=== PATIENT | female | born 1950 | race Caucasian/White ===

== ENCOUNTER 2017-09-16 11:16 | Emergency (ER) | payer MEDICARE, MEDICAID ==
[~2017-09-16] VITALS: Ht 152.4 cm; Wt 56.7 kg
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
--- OUTSIDE RECORDS SUMMARY | 2017-09-16 11:22 | XMS REPORT ---
Author Author ISSAC CHEUNG Organization [facility] Address Unknown Phone Unavailable Care Team Providers Care Product Development Name Role Phone ISSAC CHEUNG Unavailable Unavailable PROBLEMS Type Condition ICD9-CM Code UWX00-GN Code Onset Dates Condition Status SNOMED Code Problem Encounter for immunization Z23 Active 402765777 Problem Chronic gastric ulcer, unspecified whether gastric ulcer hemorrhage or perforation present K25.7 Active 33769258 Problem 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 Active 719862864 Problem Other chronic pain G89.29 Active 87129458 Problem Tobacco abuse counseling Z71.6 Active 761243254 Problem Pain in left knee M25.562 Active 915852910301534 Problem Tobacco abuse Z72.0 Active 047911856 Problem High risk medication use Z79.899 Active 777769320450862 Problem Acute exacerbation of chronic obstructive pulmonary disease (COPD) J44.1 Active 961003396 Problem Hemiparesis affecting left side as late effect of cerebrovascular accident I69.354 Active 359511416 Problem Decreased GFR R94.4 Active 22929125 Problem Hyperlipidemia LDL goal <70 E78.5 Active 87375795 Problem Dermatitis L30.9 Active 75434243 Problem Knee pain, left anterior M25.562 Active 658465504 Problem Paranoid schizophrenia F20.0 Active 64231324 Problem Pain in right knee M25.561 Active 75400971 Problem 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 Active 268119220 Problem Major neurocognitive disorder F03.90 Active 828804217 Problem Hemiparesis affecting left side as late effect of stroke I69.354 Active 585577123 Problem Constipation, unspecified constipation type K59.00 Active 66462317 Problem Essential hypertension I10 Active 83008778 Problem Psychosis, unspecified psychosis type F29 Active 82472344 Problem Wheezing R06.2 Active 66484997 ALLERGIES No Information ENCOUNTERS Encounter Location Date Diagnosis [facility] [address] [id number] [place] [id number] Aug, Essential hypertension I[address] [id number][place] [id number] Aug, [facility] [address] [id number], [place] [id number] Aug, Pain in right knee M25.561 [facility] [address] [id number][place] [id number] Aug, [facility] [address] [id number][place] [id number] Jul, Essential hypertension I10 [facility] [address] [id number][place] [id number] Jul, High risk medication use Z79.899 ; Pain in right knee M25.561 ; Pain in left knee M25.562 and Other chronic pain G89.29 [facility] [address] [facility] [address] [id number][place] [id number] Jun, [place] [id number] [place] [address] Jun, Psychosis, unspecified psychosis type F29 and 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 [place] [address] [place] [address] Jun, [facility] [address] [facility] [address] [id number][place] [address] Jun, High risk medication use Z79.899 [facility] [address] [id number] [address] Jun, [facility] [address] [place] [address] AVE [id number][place] [id number] Jun, [place] [address] [place] [address] Jun, [facility] [address] [place] [address] 03 Feb, 2018 Tobacco abuse Z72.0 [place] [address] [facility] [id number] [place] [address] May, [facility] [address] [facility] [address] [id number][place] [id number] May, [facility] [address] [facility] [address] [id number], [place] [address] May, Essential hypertension I10 ; Tobacco abuse Z72.0 ; Tobacco abuse counseling Z71.6 and Decreased GFR R94.4 [place] [address]65[address] [address] May, [place] [address] [place] [address] May, Psychosis, unspecified psychosis type F29 and 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 [id number][place] [id number] May, Constipation, unspecified constipation type K59.[address] [id number], [place] [id number] May, High risk medication use Z79.[address] [id number] [place] [id number] May, Hyperlipidemia LDL goal <70 E78.5 and Decreased GFR R94.[address] [id number][place] [id number] May, Essential hypertension I10 and Acute exacerbation of chronic obstructive pulmonary disease (COPD) J44.1 [place] [address] [facility] [id number] [place] [address] Apr, Psychosis, unspecified psychosis type F29 [address] [id number], [place] [id number] Apr, Hemiparesis affecting left side as late effect of cerebrovascular accident I69.354 [place] [address] [place] [address] Apr, Psychosis, unspecified psychosis type F29 [facility] [address] [id number], [place] [id number] Apr, [facility] [address] [id number], [place] [address] Apr, High risk medication use Z79.899 [facility] [address] [id number], [place] [id number] Mar, [facility] [address] [id number], [place] [id number] Mar, 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 ; Essential hypertension I10 ; 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 and Hemiparesis affecting left side as late effect of cerebrovascular accident I69.354 [facility] [address]65100[place] [address] Mar, Psychosis, unspecified psychosis type F29 [facility] [address]65[address] [address] Mar, Psychosis, unspecified psychosis type F29 and 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 [facility] [address] [id number], [place] [address] Mar, Chronic gastric ulcer, unspecified whether gastric ulcer hemorrhage or perforation present K25.7 [facility] [address] [facility] [address] [id number], [place] [id number] Mar, High risk medication use Z79.899 [facility] [address] [id number][place] [id number] Feb, Encounter for immunization Z23 ; 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 ; Chronic gastric ulcer, unspecified whether gastric ulcer hemorrhage or perforation present K25.7 and Essential hypertension I10 [facility] [address] [id number], [place] [id number] Feb, Essential hypertension I10 [facility] [address] [address] Feb, 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 and Psychosis, unspecified psychosis type F29 [facility] [address] [id number] [address] Feb, [facility] [address] [id number], [place] [id number] Feb, [facility] [address] [id number][place] [id number] Feb, High risk medication use Z79.899 [place] [address] [id number] [address] Jan, 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 [facility] [address] [id number], [place] [id number] Jan, [facility] [address] [id number], [place] [id number] Jan, [facility] [address] [id number], [place] [address] Jan, High risk medication use Z79.899 ; Pain in right knee M25.561 ; Knee pain, left anterior M25.562 ; Wheezing R06.2 and Constipation, unspecified constipation type K59.00 [facility] [address] [id number] [address] Jan, 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 and Psychosis, unspecified psychosis type F29 [facility] [address] [id number] [address] Jan, [facility] [address]00565100[place] [address] Jan, Psychosis, unspecified psychosis type F29 [facility] [address] [id number], [place] [id number] Dec, High risk medication use Z79.899 [place] [address]65[address] [address] Dec, Psychosis, unspecified psychosis type F29 and 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 [facility] [address] [id number][place] [id number] Dec, Paranoid schizophrenia F20.0 and Major neurocognitive disorder F03.90 [facility] [address]00565100[place] [address] Dec, [facility] [address]00565100[place] [address] Dec, 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 [facility] [address]65100[place] [address] Dec, 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 [facility] [address]65[address] [address] Nov, [place] [address] [facility] [id number][place] [id number] Nov, High risk medication use Z79.899 [facility] [address]65[address] [address] Nov, [facility] [address] [address] Nov, 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 [facility] [address] [id number], [place] [id number] Nov, Paranoid schizophrenia F20.0 and Major neurocognitive disorder F03.90 [facility] [address] [id number], [place] [id number] Oct, [facility] [address] [id number], [place] [id number] Oct, 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 and Essential hypertension I10 [facility] [address] [id number][place] [address] Oct, High risk medication use Z79.899 ; Pain in right knee M25.561 ; Knee pain, left anterior M25.562 ; Hemiparesis affecting left side as late effect of stroke I69.354 and Dermatitis L30.[address] [id number], [place] [id number] Oct, [facility] [address] [id number] [address] Oct, 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 [facility] [address] [facility] [id number] [place] [address] Oct, 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 and Psychosis, unspecified psychosis type F29 [address] [id number][place] [id number] Oct, Major neurocognitive disorder F03.90 and Paranoid schizophrenia F20.[address] [id number][place] [id number] September, Paranoid schizophrenia F20.[address] [id number], [place] [address] September, High risk medication use Z79.899 ; Paranoid schizophrenia F20.0 ; Essential hypertension I10 ; Tobacco abuse Z72.0 and Tobacco abuse counseling Z71.[address] [id number], [place] [address] September, IMMUNIZATIONS No Known Immunizations SOCIAL HISTORY Never Assessed REASON FOR VISIT [facility] Contact PLAN OF CARE Activity Details Follow Up maintain current appts. Reason:sustain symptom relief. VITAL SIGNS MEDICATIONS Unknown Medications RESULTS No Results PROCEDURES No Known procedures [...] Carotid study showed 50% blockage bilat from 2015 Medical History CVD risk 27% Surgical History [...]
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
--- OUTSIDE RECORDS SUMMARY | 2017-09-16 11:23 | XMS REPORT ---
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 Active 201150293 Problem Other chronic pain G89.29 Active 62684088 Problem Tobacco abuse counseling Z71.6 Active 531606874 Problem Pain in left knee M25.562 Active 892198784506746 Problem Tobacco abuse Z72.0 Active 956541395 Problem High risk medication use Z79.899 Active 783212529563502 Problem Acute exacerbation of chronic obstructive pulmonary disease (COPD) J44.1 Active 568586317 Problem Hemiparesis affecting left side as late effect of cerebrovascular accident I69.354 Active 396125729 Problem Decreased GFR R94.4 Active 27898299 Problem Hyperlipidemia LDL goal <70 E78.5 Active 35461593 Problem Dermatitis L30.9 Active 04481604 Problem Knee pain, left anterior M25.562 Active 207557326 Problem Paranoid schizophrenia F20.0 Active 59528793 Problem Pain in right knee M25.561 Active 67167198 Problem 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 Active 711110878 Problem Major neurocognitive disorder F03.90 Active 194670249 Problem Hemiparesis affecting left side as late effect of stroke I69.354 Active 932806146 Problem Constipation, unspecified constipation type K59.00 Active 64289367 Problem Essential hypertension I10 Active 87070665 Problem Psychosis, unspecified psychosis type F29 Active 09335341 Problem Wheezing R06.2 Active 16102850 ALLERGIES Substance Reaction Event Type Date Status Codeine Phosphate Unknown Drug Allergy Jan, Active ENCOUNTERS Encounter Location Date Diagnosis [facility] [address] [facility] [id number] [place] [id number] Aug, Essential hypertension I10 [facility] [address] [id number] [id number] Aug, [facility] [address] [id number][place] [id number] Aug, Pain in right knee M25.561 [facility] [address] [id number][place] [id number] Aug, [facility] [address] [id number][place] [id number] Jul, Essential hypertension I10 [facility] [address] [facility] [address] [id number][place] [id number] Jul, High risk medication use Z79.899 ; Pain in right knee M25.561 ; Pain in left knee M25.562 and Other chronic pain G89.29 [facility] [address] [id number][place] [id number] Jun, [place] [address], [place] [address] Jun, Psychosis, unspecified psychosis type F29 and 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 [place] [address] [id number] [address] Jun, [facility] [address] [id number][place] [id number] Jun, High risk medication use Z79.899 [place] [address] [place] [id number] [address] Jun, [facility] [address] [id number][place] [id number] Jun, [place] [address] [place] [id number] [place] [address] Jun, [facility] [address] [place] [address] [id number], [place] [address] Jun, Tobacco abuse Z72.0 [facility] [address] [place] [id number], [place] [address] May, [facility] [address] [facility] [address] [id number][place] [id number] May, 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 [address] [id number][place] [id number] May, Constipation, unspecified constipation type K59.00 [facility] [address] [facility] [address] [id number][place] [id number] May, High risk medication use Z79.899 [facility] [address] [id number], [place] [address] May, Hyperlipidemia LDL goal <70 E78.5 [address] Decre[address] GFR R94.4 [facility] [address] [id number], [place] [id number] May, Essential hypertension I10 and Acute exacerbation of chronic obstructive pulmonary disease (COPD) J44.1 [facility] [address] [facility] [id number] [address] Apr, Psychosis, unspecified psychosis type F29 [facility] [address] [id number], [place] [id number] Apr, Hemiparesis affecting left side as late effect of cerebrovascular accident I69.354 [facility] [address] [facility] [id number][place] [address] Apr, Psychosis, unspecified psychosis type F29 [facility] [address] [id number] [place] [id number] Apr, [facility] [address] [id number] [place] [id number] Apr, High risk medication use Z79.[address] [facility] [address] [id number] [place] [id number] Mar, [facility] [address] [id number], [place] [id number] Mar, 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 ; Essential hypertension I10 ; 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 and Hemiparesis affecting left side as late effect of cerebrovascular accident I69.354 [place] [address] [place] [id number], [place] [address] Mar, Psychosis, unspecified psychosis type F29 [place] [address] [place] [id number], [place] [address] Mar, Psychosis, unspecified psychosis type F29 and 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 [facility] [address] [id number] [place] [id number] Mar, Chronic gastric ulcer, unspecified whether gastric ulcer hemorrhage or perforation present K25.[address] [facility] [address] [id number] [place] [address] Mar, High risk medication use Z79.[address] [facility] [address] [id number], [place] [address] Feb, Encounter for immunization Z23 ; 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 ; Chronic gastric ulcer, unspecified whether gastric ulcer hemorrhage or perforation present K25.7 and Essential hypertension I10 [facility] [address] [id number], [place] [id number] Feb, Essential hypertension I10 [facility] [address], [place] [address] Feb, 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 and Psychosis, unspecified psychosis type F29 [facility] [address] [place] [id number], [place] [address] Feb, [facility] [address] [id number], [place] [id number] Feb, [facility] [address] [id number], [place] [id number] Feb, High risk medication use Z79.899 [place] [address] [place] [id number], [place] [address] Jan, 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 [facility] [address] [id number], [place] [id number] Jan, [facility] [address] [id number], [place] [address] Jan, [facility] [address] [id number], [place] [id number] Jan, High risk medication use Z79.899 ; Pain in right knee M25.561 ; Knee pain, left anterior M25.562 ; Wheezing R06.2 and Constipation, unspecified constipation type K59.00 [facility] [address] [place] [id number], [place] [address] Jan, 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 and Psychosis, unspecified psychosis type F29 [facility] [address] [place] [id number] [address] Jan, [place] [address] [place] [id number], [place] [address] Jan, Psychosis, unspecified psychosis type F29 [facility] [address] [id number] [place] [id number] Dec, High risk medication use Z79.899 [facility] [address], [place] [address] Dec, Psychosis, unspecified psychosis type F29 and 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 [facility] [address] [id number] [place] [address] Dec, Paranoid schizophrenia F20.0 and Major neurocognitive disorder F03.90 [facility] [address] [place] [id number], [place] [address] Dec, [facility] [address]100[place], [place] [address] Dec, 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 [facility] [address] [id number], [place] [id number] Nov, Paranoid schizophrenia F20.0 and Major neurocognitive disorder F03.90 [facility] [address] [id number] [place] [id number] Oct, [facility] [address] [id number], [place] [id number] Oct, 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 and Essential hypertension I10 [address] [id number], [place] [address] Oct, High risk medication use Z79.899 ; Pain in right knee M25.561 ; Knee pain, left anterior M25.562 ; Hemiparesis affecting left side as late effect of stroke I69.354 and Dermatitis L30.[address] [id number], [place] [id number] Oct, [facility] [address], [place] [address] Oct, 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 [facility] [address]100[place], [place] [address] Oct, 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 and Psychosis, unspecified psychosis type F29 [address] [id number], [place] [id number] Oct, Major neurocognitive disorder F03.90 and Paranoid schizophrenia F20.[address] [id number][place] [address] September, Paranoid schizophrenia F20.[address] [id number], [place] [id number] September, High risk medication use Z79.899 ; Paranoid schizophrenia F20.0 ; Essential hypertension I10 ; Tobacco abuse Z72.0 and Tobacco abuse counseling Z71.[address] [id number], [place] [id number] September, IMMUNIZATIONS No Known Immunizations SOCIAL HISTORY Never Assessed REASON FOR VISIT f/u chronic pain jazmin medley PLAN OF CARE Activity Details Follow Up 4 Weeks Reason:breathing follow up VITAL SIGNS Height 60.1 in 2017-02-02 Weight 108.1 lbs 2017-02-02 Temperature 98.5 degrees Fahrenheit 2017-02-02 Heart Rate 97 bpm 2017-02-02 Respiratory Rate 20 2017-02-02 Oximetry 96 % 2017-02-02 BMI 21.04 kg/m2 2017-02-02 Blood pressure systolic 102 mmHg 2017-02-02 Blood pressure diastolic 60 mmHg 2017-02-02 MEDICATIONS Medication Instructions Dosage Frequency Start Date End Date Duration Status Clopidogrel Bisulfate 75 MG Orally Once a day 1 tablet 24h Active MiraLax 1 Orally Once a day 1 capful in 8 ounces of juice or water 24h Jan, Active Ventolin HFA 108 (90 Base) MCG/ACT Inhalation 4 times a day 2 puffs as needed 6h Jan, Active Knee Brace Adjustable Hinged - as directed Oct, Active Colace 100 mg Orally twice a day 1 capsule as needed 12h Dec, Active Seroquel 100 MG Orally twice a day 1 tablet 12h 30 days Active Seroquel 400 MG Orally every bedtime 1 tablet Oct, 30 days Active Lisinopril 40 MG TAKE 1 TABLET BY MOUTH ONCE A DAY 90 Active Fenofibrate Micronized 134 MG Orally Once a day 1 capsule with a meal 24h 90 days Active Hydrocodone-Acetaminophen 7.5-325 MG Orally 2 times a day 1 tablet as needed for severe pain 12h Active Naproxen 250 MG Orally Twice a day 1 tablet as needed for pain 12h Active Hydrochlorothiazide 12.5 MG Orally Once a day 1 capsule in the morning Once a day Orally 24h Active Trazodone HCl 100 mg Orally Once a day 1 tablet at night as needed for sleep 24h Active Valium 5 MG Orally Twice a day as needed 1 tablet Oct, 30 days Active RESULTS Name Result Date Reference Range AMERITOX 2017-02-02 Xray : Knee, Left 3 views (IN HOUSE) 2017-02-02 Xray : Knee, Right 3 views (IN HOUSE) 2017-02-02 Xray : Chest (IN HOUSE) 2017-02-02 PROCEDURES Procedure Date Ordered Result Body Site X-RAY EXAM OF KNEE, 3 Feb 02, 2017 No Charge Feb 02, 2017 NEBULIZER TREATMENT 2017-02-02 N/A ALBUTEROL UNIT DOSE FORM INHALED 2017-02-02 N/A [facility] VISIT ESTABLISHED PATIENT Feb 02, 2017 X-RAY EXAM OF KNEE, 1 OR 2 Feb 02, 2017 CHEST X-RAY Feb 02, 2017 MEASURE BLOOD OXYGEN LEVEL Feb 02, 2017 NEB/MDI RX INITIAL Feb 02, 2017 ALBUTEROL INHAL UNIT DOSE 1 MG Feb 02, 2017 INSTRUCTIONS MEDICATIONS ADMINISTERED No Known Medications MEDICAL [...] History CVD risk 27% Surgical History Hysterectomy 1981 Surgical History right [...]
--- OUTSIDE RECORDS SUMMARY | 2017-09-16 11:23 | XMS REPORT ---
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 Active 511746704 Problem Other chronic pain G89.29 Active 71645548 Problem Tobacco abuse counseling Z71.6 Active 895904631 Problem Pain in left knee M25.562 Active 973001903250940 Problem Tobacco abuse Z72.0 Active 020368142 Problem High risk medication use Z79.899 Active 255188666201312 Problem Acute exacerbation of chronic obstructive pulmonary disease (COPD) J44.1 Active 927721169 Problem Hemiparesis affecting left side as late effect of cerebrovascular accident I69.354 Active 254245188 Problem Decreased GFR R94.4 Active 72265410 Problem Hyperlipidemia LDL goal <70 E78.5 Active 71084953 Problem Dermatitis L30.9 Active 94569349 Problem Knee pain, left anterior M25.562 Active 469128390 Problem Paranoid schizophrenia F20.0 Active 95470718 Problem Pain in right knee M25.561 Active 10904098 Problem 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 Active 815399702 Problem Major neurocognitive disorder F03.90 Active 186755401 Problem Hemiparesis affecting left side as late effect of stroke I69.354 Active 672419836 Problem Constipation, unspecified constipation type K59.00 Active 11184802 Problem Essential hypertension I10 Active 18628180 Problem Psychosis, unspecified psychosis type F29 Active 17919488 Problem Wheezing R06.2 Active 43999707 ALLERGIES Substance Reaction Event Type Date Status Codeine Phosphate Unknown Drug Allergy Oct, Active ENCOUNTERS Encounter Location Date Diagnosis [facility] [address] [id number] Aug, [facility] [address] [id number] [id number] Jul, Essential hypertension I10 [facility] [place] [address] [id number][place] [id number] Jul, High risk medication use Z79.899 ; Pain in right knee M25.561 ; Pain in left knee M25.562 and Other chronic pain G89.29 [facility] [address] [id number][place] [id number] Jun, [facility] [address] [id number], [place] [address] Jun, Psychosis, unspecified psychosis type F29 and 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 [facility] [address], [place] [address] Jun, [facility] [place] [address] [id number][place] [id number] Jun, High risk medication use Z79.899 [facility] [address] [id number] [address] Jun, [facility] [place] [address] [id number][place] [id number] Jun, [facility] [address], [place] [address] Jun, [facility] [address], [place] [address] Jun, Tobacco abuse Z72.0 [facility] [id number] [address] May, [facility] [place] [address] [id number], [place] [id number] May, [facility] [id number] [id number] May, Essential hypertension I10 ; Tobacco abuse Z72.0 ; Tobacco abuse counseling Z71.6 and Decreased GFR R94.4 [place] [address], [place] [address] May, [place] [address] [place] [id number] [place] [address] May, Psychosis, unspecified psychosis type F29 and 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 [facility] [address] [id number][place] [id number] May, Constipation, unspecified constipation type K59.00 [place] [id number] [id number][place] [id number] May, High risk medication use Z79.[address] [id number][place] [id number] May, Hyperlipidemia LDL goal <70 E78.5 and Decreased GFR R94.[address] [id number], [place] [id number] May, Essential hypertension I10 and Acute exacerbation of chronic obstructive pulmonary disease (COPD) J44.1 [address], [place] [address] Apr, Psychosis, unspecified psychosis type F29 [facility] [address] [id number][place] [id number] Apr, Hemiparesis affecting left side as late effect of cerebrovascular accident I69.354 [address] [place] [address] Apr, Psychosis, unspecified psychosis type F29 [facility] [address] [id number][place] [id number] Apr, [facility] [address] [address] [id number] [id number] Apr, High risk medication use Z79.899 [facility] [address] [id number][place] [id number] Mar, [facility] [address] [id number][place] [id number] Mar, 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 ; Essential hypertension I10 ; 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 and Hemiparesis affecting left side as late effect of cerebrovascular accident I69.354 [facility] [address], [place] [address] Mar, Psychosis, unspecified psychosis type F29 [facility] [address] [id number] [place] [address] Mar, Psychosis, unspecified psychosis type F29 and 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 [facility] [place] [address] [id number], [place] [id number] Mar, Chronic gastric ulcer, unspecified whether gastric ulcer hemorrhage or perforation present K25.7 [facility] [address] [id number], [place] [id number] Mar, High risk medication use Z79.899 [facility] [address] [id number][place] [id number] Feb, Encounter for immunization Z23 ; 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 ; Chronic gastric ulcer, unspecified whether gastric ulcer hemorrhage or perforation present K25.7 and Essential hypertension I10 [facility] [address] [id number][place] [id number] Feb, Essential hypertension I10 [facility] [address], [place] [address] Feb, 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 and Psychosis, unspecified psychosis type F29 [facility] [address] [place] [address] Feb, [facility] [address] [id number], [place] [id number] Feb, [facility] [address] [id number], [place] [id number] Feb, High risk medication use Z79.899 [facility] [id number], [place] [address] Jan, 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 [facility] [address] [id number], [place] [id number] Jan, [facility] [address] [id number], [place] [id number] Jan, [facility] [address] [id number], [place] [id number] Jan, High risk medication use Z79.899 ; Pain in right knee M25.561 ; Knee pain, left anterior M25.562 ; Wheezing R06.2 and Constipation, unspecified constipation type K59.00 [facility] [address], [place] [address] Jan, 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 and Psychosis, unspecified psychosis type F29 [facility] [address], [place] [address] Jan, [facility] [address], [place] [address] Jan, Psychosis, unspecified psychosis type F29 [facility] [address] [id number], [place] [id number] Dec, High risk medication use Z79.899 [facility] [id number], [place] [address] Dec, Psychosis, unspecified psychosis type F29 and 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 [facility] [address] [id number][place] [id number] Dec, Paranoid schizophrenia F20.0 and Major neurocognitive disorder F03.90 [facility] [address] [facility] [id number], [place] [address] Dec, [facility] [address], [place] [address] Dec, 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 [facility] [id number], [place] [address] Dec, 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 [facility] [id number], [place] [address] Nov, [place] [address] [id number], [place] [id number] Nov, High risk medication use Z79.899 [place] [address], [place] [address] Nov, [place] [id number], [place] [address] Nov, 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 [facility] [address] [id number][place] [id number] Nov, Paranoid schizophrenia F20.0 and Major neurocognitive disorder F03.90 [facility] [address] [id number][place] [id number] Oct, [facility] [address] [id number] [id number] Oct, 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 and Essential hypertension I10 [facility] [address] [address] [id number], [place] [address] Oct, High risk medication use Z79.899 ; Pain in right knee M25.561 ; Knee pain, left anterior M25.562 ; Hemiparesis affecting left side as late effect of stroke I69.354 and Dermatitis L30.[address] [facility] [address] [id number], [place] [id number] Oct, [place] [id number] [facility] [id number] [id number] Oct, 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 [facility] [address] [facility] [id number] [address] Oct, 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 and Psychosis, unspecified psychosis type F29 [address] [id number][place] [id number] Oct, Major neurocognitive disorder F03.90 and Paranoid schizophrenia F20.[address] [id number], [place] [id number] September, Paranoid schizophrenia F20.[address] [id number][place] [id number] September, High risk medication use Z79.899 ; Paranoid schizophrenia F20.0 ; Essential hypertension I10 ; Tobacco abuse Z72.0 and Tobacco abuse counseling Z71.[address] [id number], [place] [id number] September, IMMUNIZATIONS No Known Immunizations SOCIAL HISTORY Never Assessed REASON FOR VISIT pain in both knees and shoulders and left hip jazmin medley PLAN OF CARE Activity Details Follow Up 4 Weeks Reason:pain follow up VITAL SIGNS Height 60.1 in 2016-11-10 Weight 109.8 lbs 2016-11-10 Temperature 97.2 degrees Fahrenheit 2016-11-10 Heart Rate 87 bpm 2016-11-10 Respiratory Rate 18 2016-11-10 BMI 21.37 kg/m2 2016-11-10 Blood pressure systolic 102 mmHg 2016-11-10 Blood pressure diastolic 60 mmHg 2016-11-10 MEDICATIONS Medication Instructions Dosage Frequency Start Date End Date Duration Status Hydrocodone-Acetaminophen 7.5-325 MG Orally 2 times a day 1 tablet as needed for severe pain 12h Active Fenofibrate Micronized 67 MG Orally Once a day 1 capsule with a meal 24h Active Hydrocortisone 2.5 % Externally Twice a day 1 application to affected area 12h Oct, Nov, 14 days Active Seroquel 25 MG Orally dialy as needed for psychosis, anxiety 1 tablet 30 days Active Knee Brace Adjustable Hinged - as directed Oct, Active Lisinopril 40 mg Orally Once a day 1 tablet 24h Active Clopidogrel Bisulfate 75 MG Orally Once a day 1 tablet 24h Active Seroquel 100 MG Orally every bedtime 1 tablet Oct, 30 day(s) Active Hydrochlorothiazide 12.5 MG Orally Once a day 1 capsule in the morning 24h Active Valium 5 mg Orally Once a day 1 tablet as needed 24h Oct, 30 days Active Trazodone HCl 100 mg Orally twice a day 1 tablet 12h 30 days Active RESULTS Name Result Date Reference Range URINE DRUG SCREEN (IN HOUSE) 2016-11-10 Lot # [id number] Exp date 11/2017 Control pos COCAINE neg AMPH neg MTD neg THC neg OPIATE neg BENZO pos PCP neg BAR neg OXY neg MAMP neg TCA pos BUP neg MDMA neg TSH W/ FREE T4 2016-11-10 TSH 1.060 0.450-4.500 T4,Free(Direct) 1.12 0.82-1.77 CBC 2016-11-10 WBC 8.8 3.4-10.8 RBC 4.52 3.77-5.28 Hemoglobin 13.7 11.1-15.9 Hematocrit 40.5 34.0-46.6 MCV 90 79-97 MCH 30.3 26.6-33.0 MCHC 33.8 31.5-35.7 RDW 13.9 12.3-15.4 Platelets 383 150-379 Neutrophils 49 Lymphs 44 Monocytes 3 Eos 2 Basos 1 Immature Cells Neutrophils (Absolute) 4.4 1.4-7.0 Lymphs (Absolute) 3.9 0.7-3.1 Monocytes(Absolute) 0.3 0.1-0.9 Eos (Absolute) 0.2 0.0-0.4 Baso (Absolute) 0.0 0.0-0.2 Immature Granulocytes 1 Immature Grans (Abs) 0.1 0.0-0.1 NRBC Hematology Comments: LIPID PANEL 2016-11-10 Cholesterol, Total 179 100-199 Triglycerides 242 0-149 HDL Cholesterol 36 >39 VLDL Cholesterol Lind[place] 48 5-40 LDL Cholesterol Calc 95 0-99 Comment: CMP 2016-11-10 Glucose, Serum 89 65-99 BUN 25 8-27 Creatinine, Serum 1.02 0.57-1.00 eGFR If NonAfricn Am 58 >59 eGFR If Africn Am 67 >59 BUN/Creatinine Ratio 25 12-28 Sodium, Serum 137 134-144 Potassium, Serum 4.4 3.5-5.2 Chloride, Serum 99 96-106 Carbon Dioxide, Total 19 18-29 Calcium, Serum 10.3 8.7-10.3 Protein, Total, Serum 7.7 6.0-8.5 Albumin, Serum 4.9 3.6-4.8 Globulin, Total 2.8 1.5-4.5 A/G Ratio 1.8 1.2-2.2 Bilirubin, Total <0.2 0.0-1.2 Alkaline Phosphatase, S 58 39-117 AST (SGOT) 14 0-40 ALT (SGPT) 12 0-32 PROCEDURES Procedure Date Ordered Result Body Site ROUTINE VENIPUNCTURE 2016-11-10 N/A [facility], 2016 [facility] VISIT ESTABLISHED PATIENT November 10, 2016 INSTRUCTIONS MEDICATIONS ADMINISTERED No Known Medications MEDICAL [...]
--- OUTSIDE RECORDS SUMMARY | 2017-09-16 11:23 | XMS REPORT ---
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 Name Role Phone IVA GARETH Unavailable PROBLEMS Type Condition ICD9-CM Code ONP06-CO Code Onset Dates Condition Status SNOMED Code Problem Encounter for immunization Z23 Active 812046885 Problem Chronic gastric ulcer, unspecified whether gastric ulcer hemorrhage or perforation present K25.7 Active 46817842 Problem 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 Active 709027427 Problem Other chronic pain G89.29 Active 59082453 Problem Tobacco abuse counseling Z71.6 Active 043036688 Problem Pain in left knee M25.562 Active 744283123917357 Problem Tobacco abuse Z72.0 Active 857783665 Problem High risk medication use Z79.899 Active 712647715248174 Problem Acute exacerbation of chronic obstructive pulmonary disease (COPD) J44.1 Active 225266581 Problem Hemiparesis affecting left side as late effect of cerebrovascular accident I69.354 Active 352207761 Problem Decreased GFR R94.4 Active 32672302 Problem Hyperlipidemia LDL goal <70 E78.5 Active 80269954 Problem Dermatitis L30.9 Active 12476341 Problem Knee pain, left anterior M25.562 Active 508412095 Problem Paranoid schizophrenia F20.0 Active 54111758 Problem Pain in right knee M25.561 Active 99528086 Problem 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 Active 932671156 Problem Major neurocognitive disorder F03.90 Active 767783776 Problem Hemiparesis affecting left side as late effect of stroke I69.354 Active 905543415 Problem Constipation, unspecified constipation type K59.00 Active 74738750 Problem Essential hypertension I10 Active 95148955 Problem Psychosis, unspecified psychosis type F29 Active 94770114 Problem Wheezing R06.2 Active 33604899 ALLERGIES Substance Reaction Event Type Date Status Codeine Phosphate Unknown Drug Allergy Dec, Active ENCOUNTERS Encounter Location Date [facility] [address] [id number][place] [id number] Aug, [facility] [address] [id number] [id number] Aug, [facility] [address] [id number][place] [id number] Aug, [facility] [address] [id number][place] [id number] Aug, Pain in right knee M25.561 [facility] [address] [id number], [place] [id number] Aug, [facility] [address] [id number][place] [id number] Jul, Essential hypertension I10 [facility] [address] [id number][place] [id number] Jul, High risk medication use Z79.899 ; Pain in right knee M25.561 ; Pain in left knee M25.562 and Other chronic pain G89.29 [facility] [address] [id number][place] [id number] Jun, [place] [id number] [address] Jun, Psychosis, unspecified psychosis type F29 and 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 [facility] [address] [id number] [address] Jun, [facility] [address] [id number], [place] [id number] Jun, High risk medication use Z79.899 [place] [address] [id number] [address] Jun, [facility] [address] [id number], [place] [id number] Jun, [place] [address] [address] Jun, [facility] [id number] [place] [address] Jun, Tobacco abuse Z72.0 [address] [address] May, [facility] [id number] [facility] [address] [id number][place] [id number] May, [address] [id number], [place] [id number] May, Essential hypertension I10 ; Tobacco abuse Z72.0 ; Tobacco abuse counseling Z71.6 and Decreased GFR R94.4 [address] [address] May, [place] [id number] [place] [address] May, Psychosis, unspecified psychosis type F29 and 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 [facility] [address] [facility] [address] [id number][place] [id number] May, Constipation, unspecified constipation type K59.[address] [id number][place] [id number] May, High risk medication use Z79.[address] [id number][place] [id number] May, Hyperlipidemia LDL goal <70 E78.5 and Decreased GFR R94.4 [facility] [address] [facility] [id number] [place] [id number] May, Essential hypertension I10 and Acute exacerbation of chronic obstructive pulmonary disease (COPD) J44.1 [address] [address] Apr, Psychosis, unspecified psychosis type F29 [facility] [address] [id number], [place] [id number] Apr, Hemiparesis affecting left side as late effect of cerebrovascular accident I69.354 [facility] [id number] [address] 07 Apr, 2017 Psychosis, unspecified psychosis type F29 [facility] [address] [id number], [place] [id number] Apr, [facility] [address] [id number], [place] [id number] Apr, High risk medication use Z79.[address] [facility] [address] [id number], [place] [id number] Mar, [facility] [address] [id number], [place] [id number] Mar, 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 ; Essential hypertension I10 ; 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 and Hemiparesis affecting left side as late effect of cerebrovascular accident I69.354 [facility] [address] [address] 24 Mar, 2017 Psychosis, unspecified psychosis type F29 [facility] [id number] [address] Mar, Psychosis, unspecified psychosis type F29 and 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 [facility] [address] [id number], [place] [id number] Mar, Chronic gastric ulcer, unspecified whether gastric ulcer hemorrhage or perforation present K25.[address] [facility] [address] [id number], [place] [id number] Mar, High risk medication use Z79.899 [facility] [address] [id number], [place] [id number] Feb, Encounter for immunization Z23 ; 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 ; Chronic gastric ulcer, unspecified whether gastric ulcer hemorrhage or perforation present K25.7 and Essential hypertension I10 [facility] [address] [id number], [place] [id number] Feb, Essential hypertension I10 [facility] [address] [address] Feb, 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 and Psychosis, unspecified psychosis type F29 [facility] [address] [place] [address] Feb, [facility] [address] [id number], [place] [id number] Feb, [facility] [address] [facility] [address] [id number], [place] [id number] Feb, High risk medication use Z79.899 [place] [address] [place] [address] Jan, 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 [facility] [address] [id number], [place] [id number] Jan, [facility] [address] [id number], [place] [id number] Jan, [facility] [address] [facility] [address] [id number], [place] [id number] Jan, High risk medication use Z79.899 ; Pain in right knee M25.561 ; Knee pain, left anterior M25.562 ; Wheezing R06.2 and Constipation, unspecified constipation type K59.00 [place] [address] [address] Jan, 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 and Psychosis, unspecified psychosis type F29 [facility] [address] [address] Jan, [facility] [address] [place] [address] Jan, Psychosis, unspecified psychosis type F29 [facility] [address] [id number], [place] [id number] Dec, High risk medication use Z79.899 [facility] [address] [facility] [id number] [address] Dec, Psychosis, unspecified psychosis type F29 and 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 [facility] [address] [id number], [place] [id number] Dec, Paranoid schizophrenia F20.0 and Major neurocognitive disorder F03.90 [facility] [id number] [address] Dec, [facility] [address] [address] Dec, 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 [facility] [id number] [address] Dec, 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 [facility] [address] [id number] [address] Nov, [facility] [address] [facility] [address] [id number], [place] [id number] Nov, High risk medication use Z79.899 [facility] [address] [id number] [address] Nov, [facility] [address] [facility] [id number] [address] Nov, 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 [facility] [address] [id number], [place] [id number] Nov, Paranoid schizophrenia F20.0 and Major neurocognitive disorder F03.90 [facility] [address] [id number], [place] [id number] Oct, [address] [id number], [place] [id number] Oct, 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 and Essential hypertension I10 [address] [id number], [place] [id number] Oct, High risk medication use Z79.899 ; Pain in right knee M25.561 ; Knee pain, left anterior M25.562 ; Hemiparesis affecting left side as late effect of stroke I69.354 and Dermatitis L30.[address] [id number], [place] [id number] Oct, [place] [address] [address] Oct, 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 [place] [address] [id number] Oct, 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 and Psychosis, unspecified psychosis type F29 [address] [id number], [place] [address] Oct, Major neurocognitive disorder F03.90 and Paranoid schizophrenia F20.[address] [id number], [place] [id number] September, Paranoid schizophrenia F20.[address] [id number], [place] [id number] September, High risk medication use Z79.899 ; Paranoid schizophrenia F20.0 ; Essential hypertension I10 ; Tobacco abuse Z72.0 and Tobacco abuse counseling Z71.[address] [id number], [place] [id number] September, IMMUNIZATIONS No Known Immunizations SOCIAL HISTORY Never Assessed REASON FOR VISIT f/u Michell PLAN OF CARE Activity Details Follow Up 4 Weeks Reason: VITAL SIGNS Height 60.1 in 2017-01-05 Weight 109.8 lbs 2017-01-05 Heart Rate 88 bpm 2017-01-05 Respiratory Rate 20 2017-01-05 BMI 21.37 kg/m2 2017-01-05 Blood pressure systolic 124 mmHg 2017-01-05 Blood pressure diastolic 68 mmHg 2017-01-05 MEDICATIONS Medication Instructions Dosage Frequency Start Date End Date Duration Status Fenofibrate Micronized 134 MG Orally Once a day 1 capsule with a meal 24h 90 days Active Naproxen 250 MG Orally Twice a day 1 tablet 12h Oct, Dec, 30 day(s) Active Lisinopril 40 mg 1 tablet Once a day Orally Active Clopidogrel Bisulfate 75 MG Orally Once a day 1 tablet 24h Active Trazodone HCl 100 mg Orally Once a day 1 tablet at night as needed for sleep 24h 30 days Active Lisinopril 40 mg Orally Once a day 1 tablet 24h Active Seroquel 50 MG Orally three times a day as needed for mood, psychosis 1 tablet 30 days Active Knee Brace Adjustable Hinged - as directed Oct, Active Hydrocodone-Acetaminophen 7.5-325 MG Orally 2 times a day 1 tablet as needed for severe pain 12h Active Hydrochlorothiazide 12.5 MG Orally Once a day 1 capsule in the morning 24h Active Seroquel 300 MG Orally every bedtime 0.5 tablet for three nights then take one tablet every night Oct, 30 days Active Valium 5 MG Orally Once a day 1 tablet as needed 24h Oct, 30 days Active RESULTS No Results PROCEDURES Procedure Date Ordered Result Body Site [facility] VISIT ESTABLISHED PATIENT Jan 05, 2017 PSYTX COMPLEX INTERACTIVE Jan 05, 2017 INSTRUCTIONS MEDICATIONS ADMINISTERED No Known Medications [...]
--- OUTSIDE RECORDS SUMMARY | 2017-09-16 11:24 | XMS REPORT ---
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 Name Role Phone IVANIA SANTIAGO Unavailable PROBLEMS Type Condition ICD9-CM Code XTI66-MY Code Onset Dates Condition Status SNOMED Code Problem Encounter for immunization Z23 Active 999515572 Problem Chronic gastric ulcer, unspecified whether gastric ulcer hemorrhage or perforation present K25.7 Active 12289150 Problem 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 Active 863693388 Problem Other chronic pain G89.29 Active 54106394 Problem Tobacco abuse counseling Z71.6 Active 198535204 Problem Pain in left knee M25.562 Active 099582394243498 Problem Tobacco abuse Z72.0 Active 229292063 Problem High risk medication use Z79.899 Active 015153152312846 Problem Acute exacerbation of chronic obstructive pulmonary disease (COPD) J44.1 Active 542094613 Problem Hemiparesis affecting left side as late effect of cerebrovascular accident I69.354 Active 029974150 Problem Decreased GFR R94.4 Active 48603072 Problem Hyperlipidemia LDL goal <70 E78.5 Active 33143952 Problem Dermatitis L30.9 Active 72639846 Problem Knee pain, left anterior M25.562 Active 578913909 Problem Paranoid schizophrenia F20.0 Active 02920067 Problem Pain in right knee M25.561 Active 84009635 Problem 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 Active 490968805 Problem Major neurocognitive disorder F03.90 Active 940640209 Problem Hemiparesis affecting left side as late effect of stroke I69.354 Active 776137103 Problem Constipation, unspecified constipation type K59.00 Active 83045438 Problem Essential hypertension I10 Active 45942198 Problem Psychosis, unspecified psychosis type F29 Active 09979578 Problem Wheezing R06.2 Active 32153463 ALLERGIES No Information ENCOUNTERS Encounter Location Date Diagnosis [address] [id number] [id number] Aug, [facility] [address] [facility] [id number], [place] [address] Aug, [facility] [address] [id number][place] [id number] Aug, [facility] [address] [id number][place] [id number] Aug, Pain in right knee M25.561 [facility] [address] [id number], [place] [id number] Aug, [facility] [address] [id number][place] 193846480 Jul, Essential hypertension I10 [facility] [address] [id number][place] 46[address]337[address] Jul, High risk medication use Z79.899 ; Pain in right knee M25.561 ; Pain in left knee M25.562 and Other chronic pain G89.29 [facility] [address] [id number][place] [id number] Jun, [facility] [address] [id number] [address] Jun, Psychosis, unspecified psychosis type F29 and 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 [facility] [address] [facility] [id number][place] Jun, [facility] [address] [address] [id number][place] 768668945 Jun, High risk medication use Z79.899 [facility] [address] [facility] [id number][place] [address] Jun, [facility] [address] [address] [id number], [place] [id number] Jun, [facility] [address]00565100[place], [place] [address] Jun, [place] [address] [place] [address] Jun, Tobacco abuse Z72.0 [place] [address]005[address], [place] [address] May, [facility] [address] [id number][place] [id number] May, [facility] [address] [id number][place] [address] May, Essential hypertension I10 ; Tobacco abuse Z72.0 ; Tobacco abuse counseling Z71.6 and Decreased GFR R94.4 [place] [address]00565100[place], [place] [address] May, [place] [address] [id number] [place] [address] May, Psychosis, unspecified psychosis type F29 and 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 [facility] [address] [id number], [place] 193025098 May, Constipation, unspecified constipation type K59.00 [facility] [address] [id number], [place] [id number] May, High risk medication use Z79.899 [facility] [address] [id number], [place] [id number] May, Hyperlipidemia LDL goal <70 E78.5 and Decreased GFR R94.4 [facility] [address] [id number], [place] 944198560 May, Essential hypertension I10 and Acute exacerbation of chronic obstructive pulmonary disease (COPD) J44.1 [place] [address] [id number], [place] [address] Apr, Psychosis, unspecified psychosis type F29 [facility] [address] [address] [id number], [place] [address]32409014 Apr, Hemiparesis affecting left side as late effect of cerebrovascular accident I69.354 [place] [address] [id number], [place] [address] Apr, Psychosis, unspecified psychosis type F29 [facility] [address] [id number], [place] [id number] Apr, [facility] [address] [id number], [place] 688959188 Apr, High risk medication use Z79.899 [facility] [address] [id number], [place] 177435843 Mar, [facility] [address] [id number], [place] 444282783 Mar, 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 ; Essential hypertension I10 ; 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 and Hemiparesis affecting left side as late effect of cerebrovascular accident I69.354 [place] [address] [id number], [place] [address] 24 Mar, 2017 Psychosis, unspecified psychosis type F29 [place] [address] [id number], [place] [address] Mar, Psychosis, unspecified psychosis type F29 and 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 [facility] [address] [id number], [place] 632947451 Mar, Chronic gastric ulcer, unspecified whether gastric ulcer hemorrhage or perforation present K25.7 [facility] [address] [address] [id number], [place] 780874911 Mar, High risk medication use Z79.899 [facility] [address] [address] [id number], [place] 570267237 Feb, Encounter for immunization Z23 ; 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 ; Chronic gastric ulcer, unspecified whether gastric ulcer hemorrhage or perforation present K25.7 and Essential hypertension I10 [facility] [address] [id number], [place] 548957263 Feb, Essential hypertension I10 [facility] [address]00565100[place], [place] [address] Feb, 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 and Psychosis, unspecified psychosis type F29 [facility] [address]00565100[place], [place] [address] Feb, [facility] [address] [address] [id number], [place] 00590[address] Feb, [facility] [address] [id number], [place] 274923063 Feb, High risk medication use Z79.899 [place] [address]00565100[place], [place] [address] Jan, 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 [facility] [address] [address] [id number], [place] 017772947 Jan, [facility] [address] [address] [id number], [place] [id number] Jan, [facility] [address] [id number], [place] 165804584 Jan, High risk medication use Z79.899 ; Pain in right knee M25.561 ; Knee pain, left anterior M25.562 ; Wheezing R06.2 and Constipation, unspecified constipation type K59.00 [facility] [address] [id number], [place] [address] Jan, 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 and Psychosis, unspecified psychosis type F29 [facility] [address] [id number], [place] [address] Jan, [facility] [address] [id number], [place] [address] Jan, Psychosis, unspecified psychosis type F29 [facility] [address] [id number], [place] 631191607 Dec, High risk medication use Z79.899 [facility] [address] [id number], [place] [address] Dec, Psychosis, unspecified psychosis type F29 and 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 [facility] [address] [id number], [place] 872663872 Dec, Paranoid schizophrenia F20.0 and Major neurocognitive disorder F03.90 [facility] [address]100[place], [place] [address] Dec, [facility] [address]100[place], [place] [address] Dec, 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 [facility] [address], [place] [address] Dec, 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 [facility] [address], [place] [address] Nov, [facility] [address] [facility] [address] [id number], [place] 486211128 Nov, High risk medication use Z79.899 [facility] [address] [id number], [place] [address] Nov, [facility] [address] [facility] [id number], [place] [address]- [address] Nov, 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 [facility] [address] [id number], [place] 199989852 Nov, Paranoid schizophrenia F20.0 and Major neurocognitive disorder F03.90 [facility] [address] [address] [id number], [place] [address]6499716 Oct, [facility] [address] [id number], [place] 802944542 Oct, 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 and Essential hypertension I10 [address] [id number], [place] 304237943 Oct, High risk medication use Z79.899 ; Pain in right knee M25.561 ; Knee pain, left anterior M25.562 ; Hemiparesis affecting left side as late effect of stroke I69.354 and Dermatitis L30.[address] [id number], [place] 448631954 Oct, [place] [address], [place] [address] Oct, 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 [facility] [address] [id number], [place] [address] Oct, 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 and Psychosis, unspecified psychosis type F29 [address] [id number], [place] 309863316 Oct, Major neurocognitive disorder F03.90 and Paranoid schizophrenia F20.[address] [id number], [place] 456737578 September, Paranoid schizophrenia F20.[address] [id number], [place] 643714068 September, High risk medication use Z79.899 ; Paranoid schizophrenia F20.0 ; Essential hypertension I10 ; Tobacco abuse Z72.0 and Tobacco abuse counseling Z71.[address] [id number], [place] [id number] September, IMMUNIZATIONS No Known Immunizations SOCIAL HISTORY Never Assessed REASON FOR VISIT Medication refill request PLAN OF CARE VITAL SIGNS MEDICATIONS Medication Instructions Dosage Frequency Start Date End Date Duration Status Hydrocodone-Acetaminophen 7.5-325 MG Orally 2 times a day 1 tablet as needed for severe pain 12h Active Colace 100 mg Orally twice a day 1 capsule as needed 12h 29 Dec, 2016 Mar, 30 days Active RESULTS No Results PROCEDURES [...]
--- OUTSIDE RECORDS SUMMARY | 2017-09-16 11:24 | XMS REPORT ---
Author Author VERONIKA Carlso Organization [facility] Address [address] [place] [address] Care Team Providers Care Lumber Bearer Name Role Phone VERONIKA Carlos Unavailable PROBLEMS Type Condition ICD9-CM Code TDT24-DI Code Onset Dates Condition Status SNOMED Code Problem Encounter for immunization Z23 Active 294852163 Problem Chronic gastric ulcer, unspecified whether gastric ulcer hemorrhage or perforation present K25.7 Active 62090522 Problem 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 Active 853671934 Problem Other chronic pain G89.29 Active 31886368 Problem Tobacco abuse counseling Z71.6 Active 324064413 Problem Pain in left knee M25.562 Active 489446354363599 Problem Tobacco abuse Z72.0 Active 414622981 Problem High risk medication use Z79.899 Active 339988904778967 Problem Acute exacerbation of chronic obstructive pulmonary disease (COPD) J44.1 Active 017383357 Problem Hemiparesis affecting left side as late effect of cerebrovascular accident I69.354 Active 302474903 Problem Decreased GFR R94.4 Active 71860510 Problem Hyperlipidemia LDL goal <70 E78.5 Active 47148039 Problem Dermatitis L30.9 Active 92356287 Problem Knee pain, left anterior M25.562 Active 436581741 Problem Paranoid schizophrenia F20.0 Active 88747221 Problem Pain in right knee M25.561 Active 23979611 Problem 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 Active 868178910 Problem Major neurocognitive disorder F03.90 Active 332160894 Problem Hemiparesis affecting left side as late effect of stroke I69.354 Active 007324438 Problem Constipation, unspecified constipation type K59.00 Active 55481952 Problem Essential hypertension I10 Active 73509024 Problem Psychosis, unspecified psychosis type F29 Active 24388920 Problem Wheezing R06.2 Active 83889698 ALLERGIES No Information ENCOUNTERS Encounter Location Date Diagnosis [facility] [address] [facility] [id number] [address] Aug, [facility] [address] [id number] [place] [id number] Jul, Essential hypertension I10 [facility] [address] [id number] [place] [address] Jul, High risk medication use Z79.899 ; Pain in right knee M25.561 ; Pain in left knee M25.562 and Other chronic pain G89.29 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 [facility] [address]00565100[place], [place] [address] Jun, [facility] [address] [facility] [address] [id number] [place] [address]47 Jun, High risk medication use Z79.899 [facility] [address] [id number], [place] [address] Jun, [facility] [address] [id number] [place] [address] Jun, [facility] [address] [id number], [place] [address] Jun, [facility] [address] [id number], [place] [address] Jun, Tobacco abuse Z72.0 [facility] [address] [id number], [place] [address] May, [facility] [address] [id number] [place] [address] May, [place] [address] [id number] [place] 36036[address]85 May, Essential hypertension I10 ; Tobacco abuse Z72.0 ; Tobacco abuse counseling Z71.6 and Decreased GFR R94.4 [facility] [address] [id number], [place] [address] May, [place] [address] [id number] [address] May, Psychosis, unspecified psychosis type F29 and 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 [address] [id number] [place] [address] May, Constipation, unspecified constipation type K59.00 [place] [address] [facility] [address] [id number] [place] 39397[address] May, High risk medication use Z79.[address] [id number] [place] 176148725 May, Hyperlipidemia LDL goal <70 E78.5 and Decreased GFR R94.4 [place] [address] [facility] [address] [id number] [place] [id number] May, Essential hypertension I10 and Acute exacerbation of chronic obstructive pulmonary disease (COPD) J44.1 [place] [address] [id number] [address] Apr, Psychosis, unspecified psychosis type F29 [facility] [address] [id number] [place] 130342125 Apr, Hemiparesis affecting left side as late effect of cerebrovascular accident I69.354 [place] [address] [id number] [address] Apr, Psychosis, unspecified psychosis type F29 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 and Hemiparesis affecting left side as late effect of cerebrovascular accident I69.354 [facility] [address]00565100[place], [place] [address] Mar, Psychosis, unspecified psychosis type F29 [facility] [address]00565100[place], [place] [address] Mar, Psychosis, unspecified psychosis type F29 and 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 [facility] [address] [id number] [place] 301101297 Mar, Chronic gastric ulcer, unspecified whether gastric ulcer hemorrhage or perforation present K25.7 [facility] [address] [id number] [place] 280478719 Mar, High risk medication use Z79.899 [facility] [address] [id number] [place] 128185983 Feb, Encounter for immunization Z23 ; 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 ; Chronic gastric ulcer, unspecified whether gastric ulcer hemorrhage or perforation present K25.7 and Essential hypertension I10 [facility] [address] [facility] [address] [id number] [place] 605531487 Feb, Essential hypertension I10 [facility] [address]00565100[place], [place] [address] Feb, 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 and Psychosis, unspecified psychosis type F29 [facility] [address]00565100[place], [place] [address] Feb, [facility] [address] [id number] [place] 923554832 Feb, [facility] [address] [facility] [address] [id number] [place] [id number] Feb, High risk medication use Z79.899 [facility] [address] [id number], [place] [address]- [address] Jan, 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 [facility] [address] [id number] [place] [address]62240868 Jan, [facility] [address] [facility] [address] [id number] [place] [id number] Jan, [facility] [address] [facility] [address] [id number] [place] 260545741 Jan, High risk medication use Z79.899 ; Pain in right knee M25.561 ; Knee pain, left anterior M25.562 ; Wheezing R06.2 and Constipation, unspecified constipation type K59.00 [facility] [address]00565100[place], [place] [address] Jan, 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 and Psychosis, unspecified psychosis type F29 [facility] [address]00565100[place], [place] [address]- [address] Jan, [facility] [address]00565100[place], [place] [address]- [address] Jan, Psychosis, unspecified psychosis type F29 [facility] [address] [facility] [address] [id number] [place] [id number] Dec, High risk medication use Z79.899 [facility] [address]00565100[place], [place] [address] Dec, Psychosis, unspecified psychosis type F29 and 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 [facility] [address] [id number] [place] [address]64624 Dec, Paranoid schizophrenia F20.0 and Major neurocognitive disorder F03.90 [facility] [address] [facility] [id number], [place] [address]- [address] Dec, [facility] [address]00565100[place], [place] [address]- [address] Dec, 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 [facility] [address]00565100[place], [place] [address]- [address] Dec, 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 [facility] [address]00565100[place], [place] [address] Nov, [facility] [place] [address] [facility] [address] [id number] [place] [address] Nov, High risk medication use Z79.899 [place] [address]00565100[place], [place] [address]- [address] Nov, [place] [address]005[address]100[place], [place] [address]- [address] Nov, 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 [facility] [address] [id number] [place] 7759[address] Nov, Paranoid schizophrenia F20.0 and Major neurocognitive disorder F03.90 [facility] [address] [id number] [place] 3714[address] Oct, [facility] [address] [id number] [place] [id number] Oct, 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 and Essential hypertension I10 [facility] [address] [id number] [place] 404089327 Oct, High risk medication use Z79.899 ; Pain in right knee M25.561 ; Knee pain, left anterior M25.562 ; Hemiparesis affecting left side as late effect of stroke I69.354 and Dermatitis L30.[address] [facility] [address] [id number] [place] 191087850 Oct, [facility] [address] [facility] [id number], [place] 092610- [address] Oct, 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 [facility] [address] [facility] [id number] [place] [address]- [address] Oct, 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 and Psychosis, unspecified psychosis type F29 [address] [id number] [place] 35[address] Oct, Major neurocognitive disorder F03.90 and Paranoid schizophrenia F20.[address] [id number] [place] 120488436 September, Paranoid schizophrenia F20.[address] [id number] [place] 95[address]16[address] September, High risk medication use Z79.899 ; Paranoid schizophrenia F20.0 ; Essential hypertension I10 ; Tobacco abuse Z72.0 and Tobacco abuse counseling Z71.[address] [id number] [place] [id number] September, IMMUNIZATIONS No Known Immunizations SOCIAL HISTORY Never Assessed REASON FOR VISIT f/u PLAN OF CARE Activity Details Follow Up 4 Weeks Reason: VITAL SIGNS MEDICATIONS Unknown Medications RESULTS No Results PROCEDURES Procedure Date Ordered Result Body Site [facility] VISIT MENTAL HEALTH ESTAB PT November 23, 2016 INSTRUCTIONS MEDICATIONS ADMINISTERED No Known Medications [...] 50% blockage bilat from 2015 Medical History -2017 CVD risk 27% Surgical History Hysterectomy 1982 [...]
--- OUTSIDE RECORDS SUMMARY | 2017-09-16 11:24 | XMS REPORT ---
Author Author GARETH ENRIQUE Organization [facility] Address [address] [place] [address] Care Team Providers Care Independent Freight Agent Name Role Phone GARETH ENRIQUE Unavailable PROBLEMS Type Condition ICD9-CM Code QCA51-WA Code Onset Dates Condition Status SNOMED Code Problem Encounter for immunization Z23 Active 356935617 Problem Chronic gastric ulcer, unspecified whether gastric ulcer hemorrhage or perforation present K25.7 Active 33934910 Problem 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 Active 223957486 Problem Other chronic pain G89.29 Active 28223707 Problem Tobacco abuse counseling Z71.6 Active 363533490 Problem Pain in left knee M25.562 Active 776319860177356 Problem Tobacco abuse Z72.0 Active 403692793 Problem High risk medication use Z79.899 Active 605031454622022 Problem Acute exacerbation of chronic obstructive pulmonary disease (COPD) J44.1 Active 451635870 Problem Hemiparesis affecting left side as late effect of cerebrovascular accident I69.354 Active 419379948 Problem Decreased GFR R94.4 Active 18154422 Problem Hyperlipidemia LDL goal <70 E78.5 Active 01263466 Problem Dermatitis L30.9 Active 31141206 Problem Knee pain, left anterior M25.562 Active 004971516 Problem Paranoid schizophrenia F20.0 Active 74194456 Problem Pain in right knee M25.561 Active 88993845 Problem 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 Active 892351108 Problem Major neurocognitive disorder F03.90 Active 822559105 Problem Hemiparesis affecting left side as late effect of stroke I69.354 Active 976036206 Problem Constipation, unspecified constipation type K59.00 Active 79750555 Problem Essential hypertension I10 Active 29077848 Problem Psychosis, unspecified psychosis type F29 Active 33346163 Problem Wheezing R06.2 Active 10652402 ALLERGIES No Information ENCOUNTERS Encounter Location Date Diagnosis [facility] [address] [facility] [id number] [id number] Aug, [facility]ential [facility] I10 [facility] [address] [id number], [place] [id number] Aug, [facility] [address] [id number], [place] [address]69837[address] Aug, Pain in right knee M25.561 [facility] [address] [id number], [place] [address] Aug, [facility] [address] [id number], [place] [address]87[address] Jul, Essential hypertension I10 [facility] [address] [facility] [address] [id number], [place] [address] Jul, High risk medication use Z79.899 ; Pain in right knee M25.561 ; Pain in left knee M25.562 and Other chronic pain G89.29 [facility] [address] [id number], [place] [address]48[address] Jun, [facility] [address] [id number] [address] Jun, Psychosis, unspecified psychosis type F29 and 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 [facility] [address] [id number] [address] Jun, [facility] [address] [id number], [place] [address] Jun, High risk medication use Z79.899 [facility] [address] [id number] [address] Jun, [facility] [address] [id number], [place] [address]32 Jun, [facility] [address] [id number] [address] Jun, [facility] [address] [address] Jun, Tobacco abuse Z72.0 [facility] [address] [id number] [address] May, [facility] [address] [facility] [address] [id number], [place] [id number] May, [facility] [address] [place] [address] AV [id number][place] [address] May, Essential hypertension I10 ; Tobacco abuse Z72.0 ; Tobacco abuse counseling Z71.6 and Decreased GFR R94.4 [facility] [address] [facility] [id number] [place] [address] May, [facility] [address]100[place] [address] May, Psychosis, unspecified psychosis type F29 and 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 [facility] [address] [facility] [address] [id number], [place] [address] May, Constipation, unspecified constipation type K59.[address] [id number], [place] 816235781 May, High risk medication use Z79.[address] [id number], [place] 35[address] May, Hyperlipidemia LDL goal <70 E78.5 and Decreased GFR R94.[address] [id number], [place] 718260735 May, Essential hypertension I10 and Acute exacerbation of chronic obstructive pulmonary disease (COPD) J44.1 [facility] [address] [facility] [id number] [place] [address] Apr, Psychosis, unspecified psychosis type F29 [address] [id number], [place] [address]42[address]184 Apr, Hemiparesis affecting left side as late effect of cerebrovascular accident I69.354 [address] [facility] [id number] [place] [address] Apr, Psychosis, unspecified psychosis type F29 [facility] [address] [id number], [place] [address] Apr, [facility] [address] [id number], [place] 485[address]85 Apr, High risk medication use Z79.[address] [facility] [address] [id number], [place] [id number] Mar, [facility] [address] [id number], [place] [address] Mar, 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 ; Essential hypertension I10 ; 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 and Hemiparesis affecting left side as late effect of cerebrovascular accident I69.354 [address]00565100[place] [address] Mar, Psychosis, unspecified psychosis type F29 [address] [address] [address] [id number] [address] Mar, Psychosis, unspecified psychosis type F29 and 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 [facility] [address] [facility] [address] [id number], [place] 17[address]69465 Mar, Chronic gastric ulcer, unspecified whether gastric ulcer hemorrhage or perforation present K25.7 [facility] [address] [id number], [place] [address] Mar, High risk medication use Z79.899 [facility] [address] [id number], [place] [id number] Feb, Encounter for immunization Z23 ; 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 ; Chronic gastric ulcer, unspecified whether gastric ulcer hemorrhage or perforation present K25.7 and Essential hypertension I10 [facility] [address] [id number], [place] 634[address]2493 Feb, Essential hypertension I10 [address] [address] [id number] [address] Feb, 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 and Psychosis, unspecified psychosis type F29 [address] [address] [id number] [address] Feb, [facility] [address] [id number], [place] 763856698 Feb, [facility] [address] [id number], [place] 234324624 Feb, High risk medication use Z79.899 [address]00565100[place] [address] Jan, 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 [facility] [address] [id number], [place] [address]15697314 Jan, [facility] [address] [id number], [place] 815926329 Jan, [facility] [address] [facility] [address] [id number], [place] 567035854 Jan, High risk medication use Z79.899 ; Pain in right knee M25.561 ; Knee pain, left anterior M25.562 ; Wheezing R06.2 and Constipation, unspecified constipation type K59.00 [address] [address] [id number] [address] Jan, 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 and Psychosis, unspecified psychosis type F29 [address]65100[place] [address] Jan, [address]100[place] [address] Jan, Psychosis, unspecified psychosis type F29 [address] [id number], [place] 3550[address] Dec, High risk medication use Z79.899 [facility] [address] [facility] [id number] [place] [address] Dec, Psychosis, unspecified psychosis type F29 and 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 [facility] [address] [id number] [place] [address]08[address] Dec, Paranoid schizophrenia F20.0 and Major neurocognitive disorder F03.90 [facility] [address] [facility] [id number] [place] [address] Dec, [facility] [address] [facility] [id number] [place] [address] Dec, 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 [facility] [address] [id number] [address]87 Dec, 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 [facility] [address] [id number] [address] Nov, [facility] [address] [facility] [address] [id number], [place] 606[address]0699 Nov, High risk medication use Z79.899 [facility] [address] [id number] [address] Nov, [facility] [address] [id number] [address] Nov, 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 [facility] [address] [id number], [place] 489213128 Nov, Paranoid schizophrenia F20.0 and Major neurocognitive disorder F03.[address] [facility] [address] [id number] [place] [address] Oct, [facility] [address] [id number], [place] 288820468 Oct, 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 and Essential hypertension I10 [address] [id number], [place] 337950067 Oct, High risk medication use Z79.899 ; Pain in right knee M25.561 ; Knee pain, left anterior M25.562 ; Hemiparesis affecting left side as late effect of stroke I69.354 and Dermatitis L30.[address] [id number], [place] 916213103 Oct, [facility] [address]005[address]100[place] [address] Oct, 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 [address]100[place] [address] Oct, 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 and Psychosis, unspecified psychosis type F29 [address] [id number], [place] 461656860 Oct, Major neurocognitive disorder F03.90 and Paranoid schizophrenia F20.[address] [id number], [place] 928949085 September, Paranoid schizophrenia F20.[address] [id number], [place] 768652993 September, High risk medication use Z79.899 ; Paranoid schizophrenia F20.0 ; Essential hypertension I10 ; Tobacco abuse Z72.0 and Tobacco abuse counseling Z71.[address] [id number], [place] 280818124 September, IMMUNIZATIONS No Known Immunizations SOCIAL HISTORY Never Assessed REASON FOR VISIT Refill request PLAN OF CARE VITAL SIGNS MEDICATIONS Unknown Medications RESULTS No [...]
--- OUTSIDE RECORDS SUMMARY | 2017-09-16 11:24 | XMS REPORT ---
Author Author THU CHAPPELL [facility] Address [address] [place] [address] Care Team Providers Care Blender / Cook Name Role Phone THU CHAPPELL Unavailable PROBLEMS Type Condition ICD9-CM Code YGF97-BQ Code Onset Dates Condition Status SNOMED Code Problem Encounter for immunization Z23 Active 636378108 Problem Chronic gastric ulcer, unspecified whether gastric ulcer hemorrhage or perforation present K25.7 Active 06628481 Problem 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 Active 386345455 Problem Other chronic pain G89.29 Active 72217881 Problem Tobacco abuse counseling Z71.6 Active 033219691 Problem Pain in left knee M25.562 Active 862384472038390 Problem Tobacco abuse Z72.0 Active 589379026 Problem High risk medication use Z79.899 Active 841381258649003 Problem Acute exacerbation of chronic obstructive pulmonary disease (COPD) J44.1 Active 666935091 Problem Hemiparesis affecting left side as late effect of cerebrovascular accident I69.354 Active 163062165 Problem Decreased GFR R94.4 Active 26797232 Problem Hyperlipidemia LDL goal <70 E78.5 Active 74334419 Problem Dermatitis L30.9 Active 89285149 Problem Knee pain, left anterior M25.562 Active 061326372 Problem Paranoid schizophrenia F20.0 Active 12550917 Problem Pain in right knee M25.561 Active 61235999 Problem 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 Active 401943157 Problem Major neurocognitive disorder F03.90 Active 635303091 Problem Hemiparesis affecting left side as late effect of stroke I69.354 Active 840346758 Problem Constipation, unspecified constipation type K59.00 Active 21898676 Problem Essential hypertension I10 Active 70283987 Problem Psychosis, unspecified psychosis type F29 Active 83783721 Problem Wheezing R06.2 Active 76463041 ALLERGIES No Information ENCOUNTERS Encounter Location Date Diagnosis [facility] [address] [facility] [id number] [address] Aug, Essential hypertension I10 [facility] [address] [address] [id number], [place] [id number] Aug, [facility] [address] [address] [id number], [place] 044260496 Aug, Pain in right knee M25.561 [facility] [address] [id number], [place] 32295[address]67 Aug, [facility] [address] [address] [id number], [place] 475812642 Jul, Essential hypertension I10 [facility] [address] [facility] [address] [id number], [place] 97[address]36[address] Jul, High risk medication use Z79.899 ; Pain in right knee M25.561 ; Pain in left knee M25.562 and Other chronic pain G89.29 [facility] [address] [id number], [place] [address]62244001 Jun, [facility] [address] [id number] [address] Jun, Psychosis, unspecified psychosis type F29 and 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 [facility] [address] [id number] [address] Jun, [facility] [address] [id number], [place] 511725722 Jun, High risk medication use Z79.899 [facility] [address] [id number] [address] Jun, [facility] [address] [id number], [place] 947938064 Jun, [facility] [address] [id number] [address]- [address] Jun, [facility] [address]100[place] [address] Jun, Tobacco abuse Z72.0 [facility] [address] [id number] [address] May, [facility] [address] [facility] [address] [id number], [place] [id number] May, [facility] [address] [place] [address] AV [id number], [place] 597773157 May, Essential hypertension I10 ; Tobacco abuse Z72.0 ; Tobacco abuse counseling Z71.6 and Decreased GFR R94.4 [facility] [address] [facility] [id number] [place] [address] May, [facility] [address]005[address]100[place] [address]- [address] May, Psychosis, unspecified psychosis type F29 and 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 [facility] [address] [facility] [address] [id number], [place] 440179641 May, Constipation, unspecified constipation type K59.[address] [id number], [place] 773437700 May, High risk medication use Z79.[address] [id number], [place] 050926556 May, Hyperlipidemia LDL goal <70 E78.5 and Decreased GFR R94.[address] [id number], [place] [id number] May, Essential hypertension I10 and Acute exacerbation of chronic obstructive pulmonary disease (COPD) J44.1 [facility] [address] [facility] [id number] [place] [address] Apr, Psychosis, unspecified psychosis type F29 [address] [id number], [place] [address]178[address] Apr, Hemiparesis affecting left side as late effect of cerebrovascular accident I69.354 [place] [address] [facility] [id number] [place] [address]- [address] Apr, Psychosis, unspecified psychosis type F29 [facility] [address] [id number], [place] 577706014 Apr, [facility] [facility] [address] [id number], [place] [address]171104 Apr, High risk medication use Z79.[address] [facility] [address] [id number], [place] 118910782 Mar, [facility] [address] [id number], [place] 728150695 Mar, 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 ; Essential hypertension I10 ; 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 and Hemiparesis affecting left side as late effect of cerebrovascular accident I69.354 [place] [address]100[place] [address] Mar, Psychosis, unspecified psychosis type F29 [place] [address] [id number] [address]- [address] Mar, Psychosis, unspecified psychosis type F29 and 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 [facility] [address] [facility] [address] [id number], [place] 246838485 Mar, Chronic gastric ulcer, unspecified whether gastric ulcer hemorrhage or perforation present K25.7 [facility] [address] [id number], [place] 884967300 Mar, High risk medication use Z79.899 [facility] [address] [id number], [place] 925751066 Feb, Encounter for immunization Z23 ; 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 ; Chronic gastric ulcer, unspecified whether gastric ulcer hemorrhage or perforation present K25.7 and Essential hypertension I10 [facility] [address] [id number], [place] 092689528 Feb, Essential hypertension I10 [place] [address] [id number] [address]- [address] Feb, 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 and Psychosis, unspecified psychosis type F29 [place] [address] [id number] [address]- [address] Feb, [facility] [address] [id number], [place] 036941183 Feb, [facility] [address] [facility] [address] [id number], [place] 206413076 Feb, High risk medication use Z79.899 [place] [address]100[place] [address]- [address] Jan, 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 [facility] [address] [id number], [place] 275884263 Jan, [facility] [address] [id number], [place] 049332263 Jan, [facility] [address] [facility] [address] [id number], [place] 256284084 Jan, High risk medication use Z79.899 ; Pain in right knee M25.561 ; Knee pain, left anterior M25.562 ; Wheezing R06.2 and Constipation, unspecified constipation type K59.00 [place] [address] [id number] [address]- [address] Jan, 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 and Psychosis, unspecified psychosis type F29 [place] [address]100[place] [address]- [address] Jan, [place] [address]100[place] [address]- [address] Jan, Psychosis, unspecified psychosis type F29 [address] [id number], [place] 7[address]88 Dec, High risk medication use Z79.899 [facility] [address] [facility] [id number] [address]- [address] Dec, Psychosis, unspecified psychosis type F29 and 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 [facility] [address] [id number] [place] [address] Dec, Paranoid schizophrenia F20.0 and Major neurocognitive disorder F03.90 [facility] [address] [facility] [id number] [place] [address]- [address] Dec, [facility] [address] [facility] 2[facility] [id number] [address]- 6535 Dec, 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 [facility] [address] [id number] [address]- 0401 Dec, 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 [facility] [address] [id number] [address]- 1350 Nov, [facility] [address] [facility] [address] [id number], [place] 506022756 Nov, High risk medication use Z79.899 [facility] [address] [id number] [address]- 9714 Nov, [facility] [address] [id number] [address]- 6881 Nov, 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 [facility] [address] [id number], [place] 015991698 Nov, Paranoid schizophrenia F20.0 and Major neurocognitive disorder F03.[address] [facility] [address] [id number] [place] [address] Oct, [facility] [address] [id number], [place] [id number] Oct, 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 and Essential hypertension I10 [address] [id number], [place] 930736999 Oct, High risk medication use Z79.899 ; Pain in right knee M25.561 ; Knee pain, left anterior M25.562 ; Hemiparesis affecting left side as late effect of stroke I69.354 and Dermatitis L30.[address] [id number], [place] 508598933 Oct, [place] [address]100[place] [address]- [address] Oct, 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 [place] [address]100[place] [address]- 3196 Oct, 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 and Psychosis, unspecified psychosis type F29 [address] [id number], [place] 080137369 Oct, Major neurocognitive disorder F03.90 and Paranoid schizophrenia F20.[address] [id number], [place] 875862753 September, Paranoid schizophrenia F20.[address] [id number], [place] 945845653 September, High risk medication use Z79.899 ; Paranoid schizophrenia F20.0 ; Essential hypertension I10 ; Tobacco abuse Z72.0 and Tobacco abuse counseling Z71.[address] [id number], [place] 367267664 September, IMMUNIZATIONS No Known Immunizations SOCIAL HISTORY Never Assessed REASON FOR VISIT Test results PLAN OF CARE VITAL SIGNS MEDICATIONS Medication Instructions Dosage Frequency Start Date End Date Duration Status Doxycycline Hyclate 100 mg Orally every 12 hrs 1 capsule 12h Jan, Jan, 10 days Active RESULTS No Results PROCEDURES No [...]
--- OUTSIDE RECORDS SUMMARY | 2017-09-16 11:25 | XMS REPORT ---
Author Author ISSAC CHEUNG Organization [facility] Address Unknown Phone Unavailable Care Team Providers Care Knotter Hand Name Role Phone ISSAC CHEUNG Unavailable Unavailable PROBLEMS Type Condition ICD9-CM Code IWV45-[place] Code Onset Dates Condition Status SNOMED Code Problem Encounter for immunization Z23 Active 997483477 Problem Chronic gastric ulcer, unspecified whether gastric ulcer hemorrhage or perforation present K25.7 Active 76463694 Problem 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 Active 489984112 Problem Other chronic pain G89.29 Active 33576884 Problem Tobacco abuse counseling Z71.6 Active 506785731 Problem Pain in left knee M25.562 Active 365023219588019 Problem Tobacco abuse Z72.0 Active 683266798 Problem High risk medication use Z79.899 Active 893047040747319 Problem Acute exacerbation of chronic obstructive pulmonary disease (COPD) J44.1 Active 771270175 Problem Hemiparesis affecting left side as late effect of cerebrovascular accident I69.354 Active 859543544 Problem Decreased GFR R94.4 Active 56403005 Problem Hyperlipidemia LDL goal <70 E78.5 Active 47889571 Problem Dermatitis L30.9 Active 21431773 Problem Knee pain, left anterior M25.562 Active 514160975 Problem Paranoid schizophrenia F20.0 Active 28855977 Problem Pain in right knee M25.561 Active 60844571 Problem 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 Active 268870818 Problem Major neurocognitive disorder F03.90 Active 354571279 Problem Hemiparesis affecting left side as late effect of stroke I69.354 Active 563559326 Problem Constipation, unspecified constipation type K59.00 Active 21980461 Problem Essential hypertension I10 Active 44534512 Problem Psychosis, unspecified psychosis type F29 Active 81816191 Problem Wheezing R06.2 Active 84352325 ALLERGIES No Information ENCOUNTERS Encounter Location Date Diagnosis [facility] [address] [facility] [id number] [place] [address] Aug, [facility] [address] [address] [id number], [place] 488678978 Jul, Essential hypertension I10 [facility] [address] [id number][place] 040484197 Jul, High risk medication use Z79.899 ; Pain in right knee M25.561 ; Pain in left knee M25.562 and Other chronic pain G89.29 [facility] [address] [id number], [place] [id number] Jun, [facility] [address] [facility] [id number] [place] [address] Jun, Psychosis, unspecified psychosis type F29 and 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 [facility] [address] [id number] [address] Jun, [facility] [address] [place] [address] AVE [id number][place] 863464169 Jun, High risk medication use Z79.899 [facility] [address] [id number] [address] Jun, [facility] [address] [facility] [address] [id number][place] [id number] Jun, [facility] [address] [id number] [address] Jun, [facility] [address]005[address] [address] Jun, Tobacco abuse Z72.0 [facility] [address] [id number] [address] May, [facility] [address] [id number], [place] 970434770 May, [facility] [address] [place] [address] AVE [id number], [place] [id number] 24 Timothy, 2018 Essential hypertension I10 ; Tobacco abuse Z72.0 ; Tobacco abuse counseling Z71.6 and Decreased GFR R94.4 [place] [address]00565100[place] [address] May, [place] [address] [address] May, Psychosis, unspecified psychosis type F29 and 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 [facility] [address] [id number], [place] [address]95697605 May, Constipation, unspecified constipation type K59.00 [facility] [address] [id number], [place] 846449338 May, High risk medication use Z79.899 [facility] [address] [id number], [place] [id number] May, Hyperlipidemia LDL goal <70 E78.5 and Decreased GFR R94.4 [facility] [address] [id number], [place] 759042099 May, Essential hypertension I10 and Acute exacerbation of chronic obstructive pulmonary disease (COPD) J44.1 [place] [address]005[address] [address] Apr, Psychosis, unspecified psychosis type F29 [facility] [address] [id number], [place] 024265572 Apr, Hemiparesis affecting left side as late effect of cerebrovascular accident I69.354 [place] [address] [id number] [address] Apr, Psychosis, unspecified psychosis type F29 [facility] [address] [id number], [place] 060096695 Apr, [facility] [address] [id number], [place] 143900534 Apr, High risk medication use Z79.899 [facility] [address] [id number], [place] 964461359 Mar, [facility] [address] [id number], [place] 317432108 Mar, 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 ; Essential hypertension I10 ; 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 and Hemiparesis affecting left side as late effect of cerebrovascular accident I69.354 [facility] [address]00565100[place] [address] Mar, Psychosis, unspecified psychosis type F29 [facility] [address] [id number] [address] Mar, Psychosis, unspecified psychosis type F29 and 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 [facility] [address] [id number], [place] 651477277 Mar, Chronic gastric ulcer, unspecified whether gastric ulcer hemorrhage or perforation present K25.7 [facility] [address] [id number], [place] 639793314 Mar, High risk medication use Z79.899 [facility] [address] [id number], [place] 055773440 Feb, Encounter for immunization Z23 ; 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 ; Chronic gastric ulcer, unspecified whether gastric ulcer hemorrhage or perforation present K25.7 and Essential hypertension I10 [facility] [address] [id number], [place] 705583052 Feb, Essential hypertension I10 [facility] [address] [facility] [id number] [address] Feb, 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 and Psychosis, unspecified psychosis type F29 [facility] [address] [id number] [address] Feb, [facility] [address] [id number], [place] 997767683 Feb, [facility] [address] [id number], [place] 231588007 Feb, High risk medication use Z79.899 [facility] [address] [id number] [address] Jan, 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 [facility] [address] [id number], [place] 398956238 Jan, [facility] [address] [id number], [place] 239381941 Jan, [facility] [address] [facility] [address] [id number], [place] 833065767 Jan, High risk medication use Z79.899 ; Pain in right knee M25.561 ; Knee pain, left anterior M25.562 ; Wheezing R06.2 and Constipation, unspecified constipation type K59.00 [facility] [address]00565100[place] [address] Jan, 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 and Psychosis, unspecified psychosis type F29 [facility] [address]00565100[place] [address] Jan, [facility] [address]00565[address] [address] Jan, Psychosis, unspecified psychosis type F29 [facility] [address] [facility] [address] [id number], [place] 437825030 Dec, High risk medication use Z79.899 [facility] [address] [id number] [address] Dec, Psychosis, unspecified psychosis type F29 and 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 [facility] [address] [id number], [place] 361111780 Dec, Paranoid schizophrenia F20.0 and Major neurocognitive disorder F03.90 [facility] [address] [id number] [address] Dec, [facility] [address] [id number] [address] Dec, 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 [facility] [address] [id number] [address] Dec, 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 [facility] [address] [id number] [address] Nov, [place] [address] [facility] [address] [id number], [place] 129005456 Nov, High risk medication use Z79.899 [place] [address] [id number] [address] Nov, [place] [address] [id number] [address] Nov, 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 [facility] [address] [id number], [place] 696136663 Nov, Paranoid schizophrenia F20.0 and Major neurocognitive disorder F03.90 [facility] [address] [id number], [place] 170459862 Oct, [facility] [address] [address] [id number], [place] 340439171 Oct, 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 and Essential hypertension I10 [facility] [address] [id number], [place] 292774867 Oct, High risk medication use Z79.899 ; Pain in right knee M25.561 ; Knee pain, left anterior M25.562 ; Hemiparesis affecting left side as late effect of stroke I69.354 and Dermatitis L30.9 [facility] [address] [address] [id number], [place] 027387731 Oct, [facility] [address] [facility] [id number] [place] [address] Oct, 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 [facility] [address] [facility] [id number] [place] [address] Oct, 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 and Psychosis, unspecified psychosis type F29 [address] [id number], [place] 154149860 Oct, Major neurocognitive disorder F03.90 and Paranoid schizophrenia F20.[address] [id number], [place] 767095492 September, Paranoid schizophrenia F20.[address] [id number], [place] 366748392 September, High risk medication use Z79.899 ; Paranoid schizophrenia F20.0 ; Essential hypertension I10 ; Tobacco abuse Z72.0 and Tobacco abuse counseling Z71.[address] [id number], [place] 363767038 September, IMMUNIZATIONS No Known Immunizations SOCIAL HISTORY Never Assessed REASON FOR VISIT [facility] Contact PLAN OF CARE Activity Details Follow Up PRN if necessary Reason:May use prn services in emergency VITAL SIGNS MEDICATIONS Unknown Medications RESULTS No [...]
--- OUTSIDE RECORDS SUMMARY | 2017-09-16 11:25 | XMS REPORT ---
Author Author GARETH ENRIQUE Organization [facility] Address [address] [place] [address] Care Team Providers Care Surgical Nurse Practitioner Name Role Phone GARETH ENRIQUE Unavailable PROBLEMS Type Condition ICD9-CM Code APJ58-DD Code Onset Dates Condition Status SNOMED Code Problem Encounter for immunization Z23 Active 351066982 Problem Chronic gastric ulcer, unspecified whether gastric ulcer hemorrhage or perforation present K25.7 Active 24191293 Problem 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 Active 836132469 Problem Other chronic pain G89.29 Active 81207592 Problem Tobacco abuse counseling Z71.6 Active 644451276 Problem Pain in left knee M25.562 Active 118784357008359 Problem Tobacco abuse Z72.0 Active 321967504 Problem High risk medication use Z79.899 Active 309897669825401 Problem Acute exacerbation of chronic obstructive pulmonary disease (COPD) J44.1 Active 833176765 Problem Hemiparesis affecting left side as late effect of cerebrovascular accident I69.354 Active 941776862 Problem Decreased GFR R94.4 Active 23540895 Problem Hyperlipidemia LDL goal <70 E78.5 Active 08481955 Problem Dermatitis L30.9 Active 45546187 Problem Knee pain, left anterior M25.562 Active 401503222 Problem Paranoid schizophrenia F20.0 Active 90888187 Problem Pain in right knee M25.561 Active 19120551 Problem 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 Active 445110471 Problem Major neurocognitive disorder F03.90 Active 102018051 Problem Hemiparesis affecting left side as late effect of stroke I69.354 Active 509148127 Problem Constipation, unspecified constipation type K59.00 Active 53616247 Problem Essential hypertension I10 Active 09794412 Problem Psychosis, unspecified psychosis type F29 Active 27905762 Problem Wheezing R06.2 Active 48438130 ALLERGIES No Information ENCOUNTERS Encounter Location Date Diagnosis [facility] [address] [facility] [id number], [place] [address] Aug, [facility] [address] [id number], [place] 501[address]30 Jul, Essential hypertension I10 [facility] [address] [id number], [place] 163880617 Jul, High risk medication use Z79.899 ; Pain in right knee M25.561 ; Pain in left knee M25.562 and Other chronic pain G89.29 [facility] [address] [id number], [place] [id number] Jun, [facility] [address] [facility] [id number], [place] [address] Jun, Psychosis, unspecified psychosis type F29 and 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0 [facility] [address] [facility] [id number], [place] 932729[address] May, [facility] [address] [id number], [place] 794169368 May, [facility] [address] [id number], [place] 404889341 May, Essential hypertension I10 ; Tobacco abuse Z72.0 ; Tobacco abuse counseling Z71.6 and Decreased GFR R94.4 [place] [address]00565100[place], [place] [address] May, [place] [address]00565100[place], [place] [address] May, Psychosis, unspecified psychosis type F29 and 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 [facility] [address] [id number], [place] 653125432 May, Constipation, unspecified constipation type K59.[address] [id number], [place] 242118835 May, High risk medication use Z79.[address] [id number], [place] 938130660 May, Hyperlipidemia LDL goal <70 E78.5 and Decreased GFR R94.[address] [id number], [place] 996001755 May, Essential hypertension I10 and Acute exacerbation of chronic obstructive pulmonary disease (COPD) J44.1 [place] [address] [id number] [address] Apr, Psychosis, unspecified psychosis type F29 [place] [address] [facility] [address] [id number], [place] 179847616 Apr, Hemiparesis affecting left side as late effect of cerebrovascular accident I69.354 [place] [address] [id number] [place] [address] Apr, Psychosis, unspecified psychosis type F29 [place] [address] [facility] [address] [id number], [place] 195096927 Apr, [address] [id number], [place] 669341660 Apr, High risk medication use Z79.899 [facility] [address] [id number] [place] [address]18[address] Mar, [facility] [address] [id number], [place] 702997717 Mar, 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 ; Essential hypertension I10 ; 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7 [facility] [address] [id number], [place] 792495966 Mar, High risk medication use Z79.899 [facility] [address] [id number], [place] 580768482 Feb, Encounter for immunization Z23 ; 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 ; Chronic gastric ulcer, unspecified whether gastric ulcer hemorrhage or perforation present K25.7 and Essential hypertension I10 [facility] [address] [id number], [place] 067217682 Feb, Essential hypertension I10 [facility] [address]00565100[place], [place] [address] Feb, 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 and Psychosis, unspecified psychosis type F29 [facility] [address]00565100[place], [place] [address] Feb, [facility] [address] [id number] [place] [address]7318[address]99 Feb, [facility] [address] [facility] [address] [id number], [place] 960302242 Feb, High risk medication use Z79.899 [place] [address] [id number] [address] Jan, 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 [facility] [address] [facility] [address] [id number], [place] [id number] Jan, [facility] [address] [facility] [address] [id number], [place] [id number] Jan, [facility] [address] [id number], [place] 855678898 Jan, High risk medication use Z79.899 ; Pain in right knee M25.561 ; Knee pain, left anterior M25.562 ; Wheezing R06.2 and Constipation, unspecified constipation type K59.00 [place] [address]00565100[place], [place] [address] Jan, 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 and Psychosis, unspecified psychosis type F29 [facility] [address]00565100[place], [place] [address]- [address] Jan, [place] [address]00565100[place], [place] [address]- 4[address] Jan, Psychosis, unspecified psychosis type F29 [place] [address] [facility] [address] [id number], [place] 169153285 Dec, High risk medication use Z79.899 [place] [address]00565100[place], [place] [address]- [address] Dec, Psychosis, unspecified psychosis type F29 and 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 [facility] [facility] [address] [id number], [place] 422265813 Dec, Paranoid schizophrenia F20.0 and Major neurocognitive disorder F03.90 [facility] [address] [facility] [id number], [place] [address]- [address] Dec, [facility] [address]00565100[place], [place] [address]- [address] Dec, 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 [facility] [address] [id number], [place] [address] 230[address] Dec, 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 [facility] [address] [id number] [address] Nov, [facility] [address] [id number], [place] 057423329 Nov, High risk medication use Z79.899 [place] [address]00565100[place], [place] [address]- [address] Nov, [facility] [address] [id number], [place] [address]- 8243 Nov, 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 [facility] [address] [id number], [place] 842205928 Nov, Paranoid schizophrenia F20.0 and Major neurocognitive disorder F03.90 [facility] [address] [id number], [place] 559089342 Oct, [facility] [address] [id number], [place] 457050916 Oct, 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 and Essential hypertension I10 [facility] [address] [id number], [place] 717742935 Oct, High risk medication use Z79.899 ; Pain in right knee M25.561 ; Knee pain, left anterior M25.562 ; Hemiparesis affecting left side as late effect of stroke I69.354 and Dermatitis L30.[address] [facility] [address] [id number] [place] 7432[address] Oct, [facility] [address] [facility] [id number] [place] 47[address]4079- [address] Oct, 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 [facility] [address] [facility] [id number] [place] [address]- 5[address] Oct, 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 and Psychosis, unspecified psychosis type F29 [address] [id number], [place] 138122849 Oct, Major neurocognitive disorder F03.90 and Paranoid schizophrenia F20.[address] [id number], [place] 400791547 September, Paranoid schizophrenia F20.[address] [id number], [place] 325316400 September, High risk medication use Z79.899 ; Paranoid schizophrenia F20.0 ; Essential hypertension I10 ; Tobacco abuse Z72.0 and Tobacco abuse counseling Z71.[address] [id number], [place] 059736227 September, IMMUNIZATIONS No Known Immunizations SOCIAL HISTORY [...]
--- OUTSIDE RECORDS SUMMARY | 2017-09-16 11:25 | XMS REPORT ---
Author Author GARETH ENRIQUE Organization [facility] Address [address] [place] [address] Care Team Providers Care Curtain Cleaner Name Role Phone IVA GARETH Unavailable PROBLEMS Type Condition ICD9-CM Code FPW27-DD Code Onset Dates Condition Status SNOMED Code Problem Encounter for immunization Z23 Active 607542478 Problem Chronic gastric ulcer, unspecified whether gastric ulcer hemorrhage or perforation present K25.7 Active 05883058 Problem 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 Active 854097185 Problem Other chronic pain G89.29 Active 28422691 Problem Tobacco abuse counseling Z71.6 Active 559545842 Problem Pain in left knee M25.562 Active 862919438680256 Problem Tobacco abuse Z72.0 Active 572827680 Problem High risk medication use Z79.899 Active 143084209353759 Problem Acute exacerbation of chronic obstructive pulmonary disease (COPD) J44.1 Active 896137132 Problem Hemiparesis affecting left side as late effect of cerebrovascular accident I69.354 Active 551378004 Problem Decreased GFR R94.4 Active 17382782 Problem Hyperlipidemia LDL goal <70 E78.5 Active 40562856 Problem Dermatitis L30.9 Active 43584476 Problem Knee pain, left anterior M25.562 Active 531024504 Problem Paranoid schizophrenia F20.0 Active 57299192 Problem Pain in right knee M25.561 Active 71541654 Problem 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 Active 602085687 Problem Major neurocognitive disorder F03.90 Active 830314418 Problem Hemiparesis affecting left side as late effect of stroke I69.354 Active 699960457 Problem Constipation, unspecified constipation type K59.00 Active 18505356 Problem Essential hypertension I10 Active 43851615 Problem Psychosis, unspecified psychosis type F29 Active 48361093 Problem Wheezing R06.2 Active 33675874 ALLERGIES Substance Reaction Event Type Date Status Codeine Phosphate Unknown Drug Allergy Jan, Active ENCOUNTERS Encounter Location Date [facility] [address] [facility] [id number] [place] [id number] Aug, Essential hypertension I10 [facility] [address] [id number] [id number] Aug, [facility] [address] [id number][place] [id number] Aug, Pain in right knee M25.561 [facility] [address] [id number][place] [id number] Aug, [facility] [address] [id number][place] [id number] Jul, Essential hypertension I10 [facility] [address] [facility] [address] [id number][place] [address] Jul, High risk medication use Z79.899 ; Pain in right knee M25.561 ; Pain in left knee M25.562 and Other chronic pain G89.29 [facility] [address] [address] [id number][place] [id number] Jun, [place] [address] [address] Jun, Psychosis, unspecified psychosis type F29 and 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 [place] [address] [place] [id number] [address] Jun, [facility] [address] [id number][place] [id number] Jun, High risk medication use Z79.899 [place] [address] [place] [id number] [address] Jun, [facility] [address] [id number][place] [id number] Jun, [place] [address] [place] [id number] [place] [id number] Jun, [facility] [address] [place] [id number] [address] Jun, Tobacco abuse Z72.0 [facility] [address] [place] [address] [id number] [address] May, [facility] [address] [facility] [address] [id number][place] [id number] May, [facility] [address] [place] [address] AVE [id number][place] [id number] May, Essential hypertension I10 ; Tobacco abuse Z72.0 ; Tobacco abuse counseling Z71.6 and Decreased GFR R94.4 [facility] [address]65100[place] [address] May, [facility] [address]65[address], [place] [address] May, Psychosis, unspecified psychosis type F29 and 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 [facility] [address] [id number], [place] [address] May, Constipation, unspecified constipation type K59.00 [facility] [address] [facility] [address] [id number][place] [id number] May, High risk medication use Z79.899 [facility] [address] [id number][place] [id number] May, Hyperlipidemia LDL goal <70 E78.5 and Decreased GFR R94.4 [facility] [address] [id number], [place] [id number] May, Essential hypertension I10 and Acute exacerbation of chronic obstructive pulmonary disease (COPD) J44.1 [facility] [address] [facility] [id number][place] [address] Apr, Psychosis, unspecified psychosis type F29 [facility] [address] [id number], [place] [id number] Apr, Hemiparesis affecting left side as late effect of cerebrovascular accident I69.354 [facility] [address] [facility] [id number], [place] [address] Apr, Psychosis, unspecified psychosis type F29 [facility] [address] [id number] [place] [id number] Apr, [facility] [address] [id number] [place] [address] Apr, High risk medication use Z79.[address] [facility] [address] [id number] [place] [id number] Mar, [facility] [address] [address] [id number], [place] [id number] Mar, 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 ; Essential hypertension I10 ; 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 and Hemiparesis affecting left side as late effect of cerebrovascular accident I69.354 [place] [address] [place] [id number] [address] Mar, Psychosis, unspecified psychosis type F29 [place] [address] [place] [id number] [address] Mar, Psychosis, unspecified psychosis type F29 and 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 [facility] [address] [id number] [place] [id number] Mar, Chronic gastric ulcer, unspecified whether gastric ulcer hemorrhage or perforation present K25.[address] [facility] [address] [id number] [place] [address] Mar, High risk medication use Z79.[address] [facility] [address] [id number], [place] [id number] Feb, Encounter for immunization Z23 ; 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 ; Chronic gastric ulcer, unspecified whether gastric ulcer hemorrhage or perforation present K25.7 and Essential hypertension I10 [facility] [address] [id number], [place] [address] Feb, Essential hypertension I10 [facility] [address]100[place], [place] [address] Feb, 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 and Psychosis, unspecified psychosis type F29 [facility] [address] [place] [id number], [place] [address] Feb, [facility] [address] [id number], [place] [id number] Feb, [facility] [address] [id number], [place] [address] Feb, High risk medication use Z79.899 [place] [address] [place] [id number], [place] [address] Jan, 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 [facility] [address] [id number], [place] [id number] Jan, [facility] [address] [id number], [place] [address] Jan, [facility] [address] [id number], [place] [address] Jan, High risk medication use Z79.899 ; Pain in right knee M25.561 ; Knee pain, left anterior M25.562 ; Wheezing R06.2 and Constipation, unspecified constipation type K59.00 [facility] [address] [place] [id number], [place] [address] Jan, 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 and Psychosis, unspecified psychosis type F29 [facility] [address] [place] [id number], [place] [address] Jan, [place] [address] [place] [id number] [address] Jan, Psychosis, unspecified psychosis type F29 [facility] [address] [id number] [place] [address] Dec, High risk medication use Z79.899 [facility] [address], [place] [address] Dec, Psychosis, unspecified psychosis type F29 and 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 [facility] [address] [id number] [place] [id number] Dec, Paranoid schizophrenia F20.0 and Major neurocognitive disorder F03.90 [facility] [address] [place] [id number], [place] [address] Dec, [facility] [address]65100[place], [place] [address] Dec, 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 [facility] [address]65100[place], [place] [address] Dec, 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 [facility] [address]65[address], [place] [address] Nov, [facility] [address] [facility] [address] [id number], [place] [id number] Nov, High risk medication use Z79.899 [facility] [address] [place] [id number], [place] [address] Nov, [facility] [address] [place] [id number], [place] [address] Nov, 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 [facility] [address] [id number], [place] [id number] Nov, Paranoid schizophrenia F20.0 and Major neurocognitive disorder F03.90 [facility] [address] [id number] [place] [id number] Oct, [facility] [address] [id number], [place] [address] Oct, 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 and Essential hypertension I10 [address] [id number], [place] [address] Oct, High risk medication use Z79.899 ; Pain in right knee M25.561 ; Knee pain, left anterior M25.562 ; Hemiparesis affecting left side as late effect of stroke I69.354 and Dermatitis L30.[address] [id number], [place] [id number] Oct, [facility] [address], [place] [address] Oct, 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 [facility] [address]65100[place], [place] [address] Oct, 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 and Psychosis, unspecified psychosis type F29 [address] [id number], [place] [id number] Oct, Major neurocognitive disorder F03.90 and Paranoid schizophrenia F20.[address] [id number], [place] [address] September, Paranoid schizophrenia F20.[address] [id number], [place] [id number] September, High risk medication use Z79.899 ; Paranoid schizophrenia F20.0 ; Essential hypertension I10 ; Tobacco abuse Z72.0 and Tobacco abuse counseling Z71.[address] [id number], [place] [id number] September, IMMUNIZATIONS No Known Immunizations SOCIAL HISTORY Never Assessed REASON FOR VISIT f/u PLAN OF CARE Activity Details Follow Up 4 Weeks Reason: VITAL SIGNS MEDICATIONS Medication Instructions Dosage Frequency Start Date End Date Duration Status Hydrochlorothiazide 12.5 MG 1 capsule in the morning Once a day Orally Active Hydrocodone-Acetaminophen 7.5-325 MG Orally 2 times a day 1 tablet as needed for severe pain 12h Active Trazodone HCl 100 mg Orally Once a day 1 tablet at night as needed for sleep 24h Active Knee Brace Adjustable Hinged - as directed Oct, Active Seroquel 100 MG Orally twice a day 1 tablet 12h 30 days Active Fenofibrate Micronized 134 MG Orally Once a day 1 capsule with a meal 24h 90 days Active Naproxen 250 MG Orally Twice a day 1 tablet 12h 30 Active Lisinopril 40 MG TAKE 1 TABLET BY MOUTH ONCE A DAY 90 Active Clopidogrel Bisulfate 75 MG TAKE 1 TABLET BY MOUTH ONCE A DAY. 30 Active Colace 100 mg Orally twice a day 1 capsule as needed 12h Dec, Mar, 30 days Active Seroquel 400 MG Orally every bedtime 1 tablet Oct, 30 days Active Valium 5 MG Orally Twice a day as needed 1 tablet Oct, 30 days Active RESULTS No Results PROCEDURES Procedure Date Ordered Result Body Site [facility] VISIT ESTABLISHED PATIENT Feb 02, 2017 INSTRUCTIONS MEDICATIONS ADMINISTERED No [...]
[2017-09-16] MEDS ORDERED: NS IV 1000 ML 1,000 ML IV SCH (11:26)
--- OUTSIDE RECORDS SUMMARY | 2017-09-16 11:26 | XMS REPORT ---
Author Author GARETH ENRIQUE Organization [facility] Address [address] [place] [address] Care Team Providers Care Broomcorn Seeder Name Role Phone GARETH ENRIQUE Unavailable PROBLEMS Type Condition ICD9-CM Code [id number] Code Onset Dates Condition Status SNOMED Code Problem Encounter for immunization Z23 Active 023186376 Problem Chronic gastric ulcer, unspecified whether gastric ulcer hemorrhage or perforation present K25.7 Active 92423128 Problem 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 Active 824976181 Problem Other chronic pain G89.29 Active 73381680 Problem Tobacco abuse counseling Z71.6 Active 277479593 Problem Pain in left knee M25.562 Active 041205601067691 Problem Tobacco abuse Z72.0 Active 575725997 Problem High risk medication use Z79.899 Active 441444945493715 Problem Acute exacerbation of chronic obstructive pulmonary disease (COPD) J44.1 Active 951545518 Problem Hemiparesis affecting left side as late effect of cerebrovascular accident I69.354 Active 992143561 Problem Decreased GFR R94.4 Active 01453649 Problem Hyperlipidemia LDL goal <70 E78.5 Active 18392220 Problem Dermatitis L30.9 Active 54522913 Problem Knee pain, left anterior M25.562 Active 803376088 Problem Paranoid schizophrenia F20.0 Active 24265550 Problem Pain in right knee M25.561 Active 59597443 Problem 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 [id number] [address] Aug, [facility] [address] [id number] [place] [id number] Jul, Essential hypertension I10 [facility] [address] [id number] [place] [id number] Jul, High risk medication use Z79.899 ; Pain in right knee M25.561 ; Pain in left knee M25.562 and Other chronic pain G89.29 [facility] [address] [id number] [place] [id number] Jun, [facility] [address] 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 [facility] [address] [address] Jun, [facility] [address] [id number] [place] [id number] Jun, High risk medication use Z79.899 [facility] [address] [id number] [address] Jun, [facility] [address] [id number] [place] [id number] Jun, [facility] [address] [id number] [address] Jun, [facility] [address] [id number] [address] Jun, Tobacco abuse Z72.0 [facility] [address] 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 [facility] [address] [id number] [place] [id number] May, Constipation, unspecified constipation type K59.[address] [id number] [place] [address] May, High risk medication use Z79.[address] [id number] [place] [address] May, Hyperlipidemia LDL goal <70 E78.5 and Decreased GFR R94.[address] [id number] [place] [address] May, Essential hypertension I10 and Acute exacerbation of chronic obstructive pulmonary disease (COPD) J44.1 [place] [address] [id number] [address] Apr, Psychosis, unspecified psychosis type F29 [place] [address] [facility] [id number] [place] [id number] Apr, Hemiparesis affecting left side as late effect of cerebrovascular accident I69.354 [place] [id number] [place] [address] Apr, Psychosis, unspecified psychosis type F29 [place] [address] [facility] [id number] [place] [id number] Apr, [address] [id number] [place] [address] Apr, High risk medication use Z79.899 [facility] [address] [id number] [place] [address] Mar, [facility] [address] [id number] [place] [address] Mar, 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 ; Essential hypertension I10 ; 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 and Hemiparesis affecting left side as late effect of cerebrovascular accident I69.354 [facility] [address] [address] Mar, Psychosis, unspecified psychosis type F29 [facility] [address] [address] Mar, Psychosis, unspecified psychosis type F29 and 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 [facility] [address] [id number] [place] [address] Mar, Chronic gastric ulcer, unspecified whether gastric ulcer hemorrhage or perforation present K25.7 [facility] [address] [id number] [place] [id number] Mar, High risk medication use Z79.899 [facility] [address] [id number] [place] [address] Feb, Encounter for immunization Z23 ; 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 ; Chronic gastric ulcer, unspecified whether gastric ulcer hemorrhage or perforation present K25.7 and Essential hypertension I10 [facility] [address] [id number] [place] [address] Feb, Essential hypertension I10 [facility] [address] [address] Feb, 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 and Psychosis, unspecified psychosis type F29 [facility] [address] [address] Feb, [facility] [address] [id number] [place] [id number] Feb, [facility] [address] [facility] [id number] [place] [id number] Feb, High risk medication use Z79.899 [place] [address] [id number] [address] Jan, 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 [facility] [address] [facility] [id number] [place] [address] Jan, [facility] [address] [address] [facility] [id number] [place] [address] Jan, [facility] [address] [id number] [place] [id number] Jan, High risk medication use Z79.899 ; Pain in right knee M25.561 ; Knee pain, left anterior M25.562 ; Wheezing R06.2 and Constipation, unspecified constipation type K59.00 [place] [address] [address] Jan, 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 and Psychosis, unspecified psychosis type F29 [facility] [address] [address] Jan, [place] [address] [address] Jan, Psychosis, unspecified psychosis type F29 [place] [address] [facility] [id number] [place] [address] Dec, High risk medication use Z79.899 [place] [address] [address] Dec, Psychosis, unspecified psychosis type F29 and 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 [facility] [address] [id number] [address] Nov, [facility] [address] [id number] [place] [id number] Nov, High risk medication use Z79.899 [place] [address] [address] Nov, [facility] [address] [id number] [address] Nov, 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 [facility] [address] [id number] [place] [address] Nov, Paranoid schizophrenia F20.0 and Major neurocognitive disorder F03.90 [facility] [address] [id number] [place] [id number] Oct, [facility] [address] [id number] [place] [address] Oct, 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 and Psychosis, unspecified psychosis type F29 [address] [id number] [place] [id number] Oct, Major neurocognitive disorder F03.90 and Paranoid schizophrenia F20.[address] [id number] [place] [address] September, Paranoid schizophrenia F20.[address] [id number] [place] [address] September, High risk medication use Z79.899 ; Paranoid schizophrenia F20.0 ; Essential hypertension I10 ; Tobacco abuse Z72.0 and Tobacco abuse counseling Z71.[address] [id number] [place] [id number] September, IMMUNIZATIONS No Known Immunizations SOCIAL HISTORY Never Assessed REASON FOR VISIT Controlled Med Refill PLAN OF CARE VITAL SIGNS MEDICATIONS Medication Instructions Dosage Frequency Start Date End Date Duration Status Valium 5 mg Orally Once a day [...]
--- OUTSIDE RECORDS SUMMARY | 2017-09-16 11:26 | XMS REPORT ---
Author Author ISSAC CHEUNG Organization 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 Active 846380023 Problem Psychosis, unspecified psychosis type F29 Active 62493715 Problem Encounter for immunization Z23 Active 880039948 Problem 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 Active 101049854 Problem Wheezing R06.2 Active 17356571 Problem Major neurocognitive disorder F03.90 Active 928668800 Problem Chronic gastric ulcer, unspecified whether gastric ulcer hemorrhage or perforation present K25.7 Active 55555900 Problem Constipation, unspecified constipation type K59.00 Active 76822136 Problem Paranoid schizophrenia F20.0 Active 98874342 Problem Essential hypertension I10 Active 95160392 Problem Tobacco abuse counseling Z71.6 Active 458680612 Problem Hemiparesis affecting left side as late effect of stroke I69.354 Active 096664271 Problem High risk medication use Z79.899 Active 921461756663586 Problem Dermatitis L30.9 Active 07906854 Problem Tobacco abuse Z72.0 Active 226127339 Problem Knee pain, left anterior M25.562 Active 405304702 ALLERGIES No Information SOCIAL HISTORY Never Assessed PLAN OF CARE VITAL SIGNS MEDICATIONS Unknown Medications RESULTS No Results PROCEDURES No Known procedures IMMUNIZATIONS No Known Immunizations MEDICAL (GENERAL) HISTORY [...]
--- OUTSIDE RECORDS SUMMARY | 2017-09-16 11:26 | XMS REPORT ---
Author Author GARETH ENRIQUE Organization [facility] Address [address] [place] [address] Care Team Providers Care Absorption Plant Operator Name Role Phone GARETH ENRIQUE Unavailable PROBLEMS Type Condition ICD9-CM Code [id number] Code Onset Dates Condition Status SNOMED Code Problem Encounter for immunization Z23 Active 266562753 Problem Chronic gastric ulcer, unspecified whether gastric ulcer hemorrhage or perforation present K25.7 Active 23357347 Problem 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 Active 533227456 Problem Other chronic pain G89.29 Active 29438599 Problem Tobacco abuse counseling Z71.6 Active 242162335 Problem Pain in left knee M25.562 Active 387969720986168 Problem Tobacco abuse Z72.0 Active 977319869 Problem High risk medication use Z79.899 Active 309793919652956 Problem Acute exacerbation of chronic obstructive pulmonary disease (COPD) J44.1 Active 580096907 Problem Hemiparesis affecting left side as late effect of cerebrovascular accident I69.354 Active 994345114 Problem Decreased GFR R94.4 Active 54355369 Problem Hyperlipidemia LDL goal <70 E78.5 Active 66591092 Problem Dermatitis L30.9 Active 51705410 Problem Knee pain, left anterior M25.562 Active 616377855 Problem Paranoid schizophrenia F20.0 Active 75182723 Problem Pain in right knee M25.561 Active 53382012 Problem 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 Active 582745713 Problem Major neurocognitive disorder F03.90 Active 698117271 Problem Hemiparesis affecting left side as late effect of stroke I69.354 Active 047183503 Problem Constipation, unspecified constipation type K59.00 Active 42276669 Problem Essential hypertension I10 Active 85285473 Problem Psychosis, unspecified psychosis type F29 Active 66009331 Problem Wheezing R06.2 Active 82016470 ALLERGIES No Information ENCOUNTERS Encounter Location Date Diagnosis [facility] [address] [id number] [place] [id number] Aug, Essential hypertension I10 [facility] [address] [id number], [place] [address] Aug, [facility] [address] [id number], [place] 5790[address]498 Aug, Pain in right knee M25.561 [facility] [address] [id number], [place] [id number] Aug, [facility] [address] [id number], [place] 209138449 Jul, Essential hypertension I10 [facility] [address] [facility] [address] [id number], [place] [address] Jul, High risk medication use Z79.899 ; Pain in right knee M25.561 ; Pain in left knee M25.562 and Other chronic pain G89.29 [facility] [address] [id number], [place] [address] Jun, [facility] [address] [id number], [place] [address] Jun, Psychosis, unspecified psychosis type F29 and 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 [facility] [address] [id number], [place] [address] Jun, [facility] [address] [id number], [place] 528[address]80 Jun, High risk medication use Z79.899 [facility] [address] [id number], [place] [address] Jun, [facility] [address] [id number], [place] [id number] Jun, [facility] [address] [id number] [address] Jun, [facility] [address], [place] [address] Jun, Tobacco abuse Z72.0 [facility] [address] [id number], [place] [address] May, [facility] [address] [facility] [address] [id number], [place] [address]4799 May, [facility] [address] [place] [address] AV [id number], [place] 9[address]0664 May, Essential hypertension I10 ; Tobacco abuse Z72.0 ; Tobacco abuse counseling Z71.6 and Decreased GFR R94.4 [facility] [address] [facility] [id number], [place] [address] May, [facility] [address]00565100[place], [place] [address] May, Psychosis, unspecified psychosis type F29 and 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 [facility] [address] [facility] [address] [id number], [place] [address]67252847 May, Constipation, unspecified constipation type K59.[address] [id number], [place] 70[address]69[address] May, High risk medication use Z79.[address] [id number], [place] 615456316 May, Hyperlipidemia LDL goal <70 E78.5 and Decreased GFR R94.[address] [id number], [place] 211699158 May, Essential hypertension I10 and Acute exacerbation of chronic obstructive pulmonary disease (COPD) J44.1 [facility] [address] [facility] [id number], [place] [address] Apr, Psychosis, unspecified psychosis type F29 [address] [id number], [place] 96[address]355 Apr, Hemiparesis affecting left side as late effect of cerebrovascular accident I69.354 [address] [facility] [id number], [place] [address] Apr, Psychosis, unspecified psychosis type F29 [facility] [address] [id number], [place] 825364403 Apr, [facility] [address] [id number], [place] 755606000 Apr, High risk medication use Z79.[address] [facility] [address] [id number], [place] 411794560 Mar, [facility] [address] [id number], [place] 868255090 Mar, 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 ; Essential hypertension I10 ; 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 and Hemiparesis affecting left side as late effect of cerebrovascular accident I69.354 [address] [address]00565100[place], [place] [address] Mar, Psychosis, unspecified psychosis type F29 [place] [address] [id number], [place] [address] Mar, Psychosis, unspecified psychosis type F29 and 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 [facility] [address] [facility] [address] [id number], [place] [address]898040 Mar, Chronic gastric ulcer, unspecified whether gastric ulcer hemorrhage or perforation present K25.7 [facility] [address] [id number], [place] [address] Mar, High risk medication use Z79.899 [facility] [address] [id number], [place] 599957176 Feb, Encounter for immunization Z23 ; 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 ; Chronic gastric ulcer, unspecified whether gastric ulcer hemorrhage or perforation present K25.7 and Essential hypertension I10 [facility] [address] [id number], [place] 544[address] Feb, Essential hypertension I10 [address] [id number], [place] [address] Feb, 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 and Psychosis, unspecified psychosis type F29 [address] [id number], [place] [address] Feb, [facility] [address] [id number], [place] [id number] Feb, [facility] [address] [id number], [place] 205124772 Feb, High risk medication use Z79.899 [address]00565100[place], [place] [address] Jan, 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 [facility] [address] [id number], [place] 775721171 Jan, [facility] [address] [id number], [place] 747972943 Jan, [facility] [address] [facility] [address] [id number], [place] 121824283 Jan, High risk medication use Z79.899 ; Pain in right knee M25.561 ; Knee pain, left anterior M25.562 ; Wheezing R06.2 and Constipation, unspecified constipation type K59.00 [address] [address] [id number], [place] [address] Jan, 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 and Psychosis, unspecified psychosis type F29 [address] [address]00565100[place], [place] [address] Jan, [address] [place] [address]00565100[place], [place] [address] Jan, Psychosis, unspecified psychosis type F29 [address] [id number], [place] 626925502 Dec, High risk medication use Z79.899 [facility] [address] [facility] [id number], [place] [address]- [address] Dec, Psychosis, unspecified psychosis type F29 and Mild neurocognitive disorder due to another medical condition G31.[address] [facility] [address] [id number] [place] 5437[address] Dec, Paranoid schizophrenia F20.0 and Major neurocognitive disorder F03.90 [facility] [address] [facility] [id number], [place] [address] Dec, [facility] [address] [facility] [id number], [place] [address] Dec, 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 [facility] [address] [id number], [place] [address] Dec, 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 [facility] [address] [id number], [place] [address] Nov, [facility] [address] [facility] [address] [id number], [place] 500137625 Nov, High risk medication use Z79.899 [facility] [address] [id number], [place] [address] Nov, [facility] [address] [id number], [place] [address] Nov, Mild neurocognitive disorder due to another medical condition G31.[address] [facility] [address] [id number], [place] 268072327 Nov, Paranoid schizophrenia F20.0 and Major neurocognitive disorder F03.[address] [facility] [address] [id number] [place] [address]692[address] Oct, [facility] [address] [id number], [place] 713290758 Oct, 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 and Essential hypertension I10 [address] [id number], [place] 330699095 Oct, High risk medication use Z79.899 ; Pain in right knee M25.561 ; Knee pain, left anterior M25.562 ; Hemiparesis affecting left side as late effect of stroke I69.354 and Dermatitis L30.[address] [id number], [place] 595359866 Oct, [place] [place] [id number], [place] [address] Oct, 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 [address], [place] [address] Oct, 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 and Psychosis, unspecified psychosis type F29 [address] [id number], [place] 648719613 Oct, Major neurocognitive disorder F03.90 and Paranoid schizophrenia F20.[address] [id number], [place] 847004772 September, Paranoid schizophrenia F20.[address] [id number], [place] 839560228 September, High risk medication use Z79.899 ; Paranoid schizophrenia F20.0 ; Essential hypertension I10 ; Tobacco abuse Z72.0 and Tobacco abuse counseling Z71.[address] [id number], [place] 271184152 September, IMMUNIZATIONS No Known Immunizations SOCIAL HISTORY Never Assessed REASON FOR VISIT Refill request PLAN OF CARE VITAL SIGNS MEDICATIONS Medication Instructions Dosage Frequency Start Date End Date Duration Status Seroquel 25 MG Orally dialy as needed [...]
--- OUTSIDE RECORDS SUMMARY | 2017-09-16 11:26 | XMS REPORT ---
Author Author GARETH ENRIQUE Organization [facility] Address [address] [place] [address] Care Team Providers Care Hand Molder Meat Name Role Phone GAERTH ENRIQUE Unavailable PROBLEMS Type Condition ICD9-CM Code YZN36-PN Code Onset Dates Condition Status SNOMED Code Problem Encounter for immunization Z23 Active 283828895 Problem Chronic gastric ulcer, unspecified whether gastric ulcer hemorrhage or perforation present K25.7 Active 21557110 Problem 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 Active 617082958 Problem Other chronic pain G89.29 Active 86843935 Problem Tobacco abuse counseling Z71.6 Active 960649802 Problem Pain in left knee M25.562 Active 043799601579115 Problem Tobacco abuse Z72.0 Active 282168368 Problem High risk medication use Z79.899 Active 284300553172803 Problem Acute exacerbation of chronic obstructive pulmonary disease (COPD) J44.1 Active 885172612 Problem Hemiparesis affecting left side as late effect of cerebrovascular accident I69.354 Active 759386280 Problem Decreased GFR R94.4 Active 03866362 Problem Hyperlipidemia LDL goal <70 E78.5 Active 95274476 Problem Dermatitis L30.9 Active 16561784 Problem Knee pain, left anterior M25.562 Active 354078627 Problem Paranoid schizophrenia F20.0 Active 25101239 Problem Pain in right knee M25.561 Active 78942871 Problem 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 Active 192986548 Problem Major neurocognitive disorder F03.90 Active 258466493 Problem Hemiparesis affecting left side as late effect of stroke I69.354 Active 600209408 Problem Constipation, unspecified constipation type K59.00 Active 62810474 Problem Essential hypertension I10 Active 70565989 Problem Psychosis, unspecified psychosis type F29 Active 92727670 Problem Wheezing R06.2 Active 44828826 ALLERGIES No Information ENCOUNTERS Encounter Location Date Diagnosis [facility] [address] [facility] [id number], [place] [address] Aug, [facility] [address] [id number], [place] [address] Jul, Essential hypertension I10 [facility] [address] [id number], [place] 500[address]1896 Jul, High risk medication use Z79.899 ; Pain in right knee M25.561 ; Pain in left knee M25.562 and Other chronic pain G89.29 [facility] [address] [id number], [place] [address]707644[address] Jun, [facility] [address] [facility] [id number], [place] [address] Jun, Psychosis, unspecified psychosis type F29 and 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 [facility] [address]00565100[place], [place] [address] Jun, [facility] [address] [id number], [place] 385966746 Jun, High risk medication use Z79.899 [facility] [address] [id number], [place] [address] Jun, [facility] [address] [id number], [place] [address]32645752 Jun, [facility] [address] [id number], [place] [address] Jun, [facility] [address] [id number], [place] [address]- [address]703 Jun, Tobacco abuse Z72.0 [facility] [address] [facility] [id number], [place]47[place]- [address] May, [facility] [address] [id number], [place] 8[address]1879 May, [facility] [address] [id number], [place] 094975233 May, Essential hypertension I10 ; Tobacco abuse Z72.0 ; Tobacco abuse counseling Z71.6 and Decreased GFR R94.4 [address]00565100[place], [place] [address]- [address] May, [address] [address]005[address], [place] [address]- [address] May, Psychosis, unspecified psychosis type F29 and 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 [facility] [address] [id number], [place] 486062493 May, Constipation, unspecified constipation type K59.[address] [id number], [place] 475575098 May, High risk medication use Z79.[address] [id number], [place] 143814056 May, Hyperlipidemia LDL goal <70 E78.5 and Decreased GFR R94.[address] [id number], [place] 627334831 May, Essential hypertension I10 and Acute exacerbation of chronic obstructive pulmonary disease (COPD) J44.1 [place] [address] [id number], [place] [address]- [address] Apr, Psychosis, unspecified psychosis type F29 [address] [facility] [address] [id number], [place] 411816361 Apr, Hemiparesis affecting left side as late effect of cerebrovascular accident I69.354 [id number] [place] [address] Apr, Psychosis, unspecified psychosis type F29 [address] [facility] [address] [id number], [place] 48[address] Apr, [address] [id number], [place] 859432213 Apr, High risk medication use Z79.899 [facility] [address] [id number] [place] [address] Mar, [facility] [address] [id number], [place] 7[address]19040 Mar, 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 ; Essential hypertension I10 ; 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 and Hemiparesis affecting left side as late effect of cerebrovascular accident I69.354 [facility] [address]00565100[place], [place] [address] Mar, Psychosis, unspecified psychosis type F29 [facility] [address]00565100[place], [place] [address]- [address] Mar, Psychosis, unspecified psychosis type F29 and 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 [facility] [address] [id number], [place] 279[address]36978 Mar, Chronic gastric ulcer, unspecified whether gastric ulcer hemorrhage or perforation present K25.7 [facility] [address] [id number], [place] 765387141 Mar, High risk medication use Z79.899 [facility] [address] [id number], [place] [address]68966190 Feb, Encounter for immunization Z23 ; 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 ; Chronic gastric ulcer, unspecified whether gastric ulcer hemorrhage or perforation present K25.7 and Essential hypertension I10 [facility] [address] [id number], [place] 30[address]26422 Feb, Essential hypertension I10 [facility] [address]00565100[place], [place] [address] Feb, 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 and Psychosis, unspecified psychosis type F29 [facility] [address]00565100[place], [place] [address]- [address] Feb, [facility] [address] [id number] [place] [address] Feb, [facility] [address] [facility] [address] [id number], [place] 64[address]66139 Feb, High risk medication use Z79.899 [place] [address] [id number], [place] [address]- [address] Jan, 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 [facility] [address] [facility] [address] [id number], [place] 56[address]00668 Jan, [facility] [address] [facility] [address] [id number], [place] 997773376 Jan, [facility] [address] [id number], [place] 865[address]1431 Jan, High risk medication use Z79.899 ; Pain in right knee M25.561 ; Knee pain, left anterior M25.562 ; Wheezing R06.2 and Constipation, unspecified constipation type K59.00 [place] [address]00565100[place], [place] [address]- [address] Jan, 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 and Psychosis, unspecified psychosis type F29 [facility] [address]00565100[place], [place] [address]- [address] Jan, [place] [address]005[address]100[place], [place] [address]- 06[address] Jan, Psychosis, unspecified psychosis type F29 [address] [facility] [address] [id number], [place] 70[address]296 Dec, High risk medication use Z79.899 [place] [address] [address]005[address], [place] [address]- [address] Dec, Psychosis, unspecified psychosis type F29 and 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 [facility] [address] [facility] [address] [id number], [place] 012076025 Dec, Paranoid schizophrenia F20.0 and Major neurocognitive disorder F03.90 [facility] [address] [facility] [id number], [place] [address]- [address] Dec, [facility] [address]00565100[place], [place] [address]- 2406 Dec, 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 [facility] [address] [id number], [place] [address]- [address] Dec, 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 [facility] [address] [id number], [place] [address]- [address] Nov, [facility] [address] [id number], [place] 840845573 Nov, High risk medication use Z79.899 [place] [address]00565100[place], [place] [address]- [address] Nov, [facility] [address] [id number], [place] [address]- 1812 Nov, 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 [facility] [address] [id number], [place] 85[address]22569 Nov, Paranoid schizophrenia F20.0 and Major neurocognitive disorder F03.90 [facility] [address] [id number], [place] [id number] Oct, [facility] [address] [id number], [place] 289869636 Oct, 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 and Essential hypertension I10 [facility] [address] [id number], [place] 79[address]38392 Oct, High risk medication use Z79.899 ; Pain in right knee M25.561 ; Knee pain, left anterior M25.562 ; Hemiparesis affecting left side as late effect of stroke I69.354 and Dermatitis L30.[address] [facility] [address] [id number], [place] 769596422 Oct, [facility] [address] [facility] [id number], [place] [address] Oct, 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 [facility] [address] [facility] [id number] [place] [address]- [address]99 Oct, 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 and Psychosis, unspecified psychosis type F29 [address] [id number], [place] 2778[address] Oct, Major neurocognitive disorder F03.90 and Paranoid schizophrenia F20.[address] [id number], [place] 372562843 September, Paranoid schizophrenia F20.[address] [id number], [place] 838495691 September, High risk medication use Z79.899 ; Paranoid schizophrenia F20.0 ; Essential hypertension I10 ; Tobacco abuse Z72.0 and Tobacco abuse counseling Z71.[address] [id number], [place] 424568491 September, IMMUNIZATIONS No Known Immunizations SOCIAL HISTORY Never Assessed REASON FOR VISIT Medication Question PLAN OF CARE VITAL SIGNS MEDICATIONS Medication [...]
--- OUTSIDE RECORDS SUMMARY | 2017-09-16 11:26 | XMS REPORT ---
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 Active 392461050 Problem Psychosis, unspecified psychosis type F29 Active 85464234 Problem Encounter for immunization Z23 Active 780378925 Problem 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 Active 662524259 Problem Wheezing R06.2 Active 56603762 Problem Major neurocognitive disorder F03.90 Active 250877314 Problem Chronic gastric ulcer, unspecified whether gastric ulcer hemorrhage or perforation present K25.7 Active 96384897 Problem Constipation, unspecified constipation type K59.00 Active 09591633 Problem Paranoid schizophrenia F20.0 Active 03777563 Problem Essential hypertension I10 Active 49015798 Problem Tobacco abuse counseling Z71.6 Active 419493470 Problem Hemiparesis affecting left side as late effect of stroke I69.354 Active 385409022 Problem High risk medication use Z79.899 Active 415212418610061 Problem Dermatitis L30.9 Active 22309497 Problem Tobacco abuse Z72.0 Active 799149303 Problem Knee pain, left anterior M25.562 Active 168802647 ALLERGIES No Information SOCIAL HISTORY Never Assessed PLAN OF CARE VITAL SIGNS MEDICATIONS Medication Instructions Dosage Frequency Start Date End Date Duration Status Trazodone HCl 100 mg Orally twice a day 1 tablet 12h Active RESULTS No Results PROCEDURES No Known procedures IMMUNIZATIONS No Known Immunizations MEDICAL (GENERAL) HISTORY Type Description Date Medical History Stroke-left sided weakness Medical History Hypertension Medical History Dementia Medical History Paranoid scitzophrenia Medical History chronic pain to the knees-walks with a cane Medical History gastric ulcer per CT 01/31 Surgical History Hysterectomy 1982 Surgical History right [...]
[2017-09-16] MEDS ORDERED: [UNRECOGNIZED DRUG - OTHER] (11:27)
--- OUTSIDE RECORDS SUMMARY | 2017-09-16 11:27 | XMS REPORT ---
Author Author GARETH ENRIQUE Organization [facility] Address [address] [place] [address] Care Team Providers Care Chief Commercial Officer Name Role Phone IVA GARETH Unavailable PROBLEMS Type Condition ICD9-CM Code CYO72-ZC Code Onset Dates Condition Status SNOMED Code Problem Encounter for immunization Z23 Active 667705225 Problem Chronic gastric ulcer, unspecified whether gastric ulcer hemorrhage or perforation present K25.7 Active 58820574 Problem 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 Active 407848998 Problem Other chronic pain G89.29 Active 68507316 Problem Tobacco abuse counseling Z71.6 Active 357888349 Problem Pain in left knee M25.562 Active 535825593811250 Problem Tobacco abuse Z72.0 Active 429259130 Problem High risk medication use Z79.899 Active 158390470052486 Problem Acute exacerbation of chronic obstructive pulmonary disease (COPD) J44.1 Active 263939732 Problem Hemiparesis affecting left side as late effect of cerebrovascular accident I69.354 Active 023621042 Problem Decreased GFR R94.4 Active 06502530 Problem Hyperlipidemia LDL goal <70 E78.5 Active 59890602 Problem Dermatitis L30.9 Active 69739078 Problem Knee pain, left anterior M25.562 Active 772191311 Problem Paranoid schizophrenia F20.0 Active 16142241 Problem Pain in right knee M25.561 Active 44420187 Problem 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 Active 175544730 Problem Major neurocognitive disorder F03.90 Active 402199150 Problem Hemiparesis affecting left side as late effect of stroke I69.354 Active 470635168 Problem Constipation, unspecified constipation type K59.00 Active 05423908 Problem Essential hypertension I10 Active 86488246 Problem Psychosis, unspecified psychosis type F29 Active 94908876 Problem Wheezing R06.2 Active 69708847 ALLERGIES Substance Reaction Event Type Date Status Codeine Phosphate Unknown Drug Allergy Oct, Active ENCOUNTERS Encounter Location Date Diagnosis [facility] [address] [address] Aug, [facility] [address] [id number][place] [id number] Jul, Essential hypertension I10 [facility] [place] [address] [id number][place] [id number] Jul, High risk medication use Z79.899 ; Pain in right knee M25.561 ; Pain in left knee M25.562 and Other chronic pain G89.29 [facility] [address] [id number][place] [id number] Jun, [facility] [address] [place] [id number] [address] Jun, Psychosis, unspecified psychosis type F29 and 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 [facility] [address], [place] [address] Jun, [facility] [place] [address] [id number][place] [id number] Jun, High risk medication use Z79.899 [facility] [id number], [place] [address] Jun, [facility] [place] [address] [id number][place] [id number] Jun, [facility] [id number], [place] [address] Jun, [facility] [address], [place] [address] Jun, Tobacco abuse Z72.0 [facility] [id number] [address] May, [facility] [place] [address] [id number], [place] [id number] May, [facility] [facility] [id number], [place] [id number] May, Essential hypertension I10 ; Tobacco abuse Z72.0 ; Tobacco abuse counseling Z71.6 and Decreased GFR R94.4 [place] [address], [place] [address] May, [place] [address] [place] [id number] [place] [address] May, Psychosis, unspecified psychosis type F29 and 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 [facility] [address] [id number], [place] [id number] May, Constipation, unspecified constipation type K59.00 [place] [address] [id number], [place] [id number] May, High risk medication use Z79.[address] [id number], [place] [id number] May, Hyperlipidemia LDL goal <70 E78.5 and Decreased GFR R94.[address] [id number], [place] [id number] May, Essential hypertension I10 and Acute exacerbation of chronic obstructive pulmonary disease (COPD) J44.1 [address], [place] [address] Apr, Psychosis, unspecified psychosis type F29 [facility] [address] [id number], [place] [id number] Apr, Hemiparesis affecting left side as late effect of cerebrovascular accident I69.354 [address] [place] [address] Apr, Psychosis, unspecified psychosis type F29 [facility] [place] [address] [id number], [place] [id number] Apr, [facility] [address] [place] [address] [id number][place] [id number] Apr, High risk medication use Z79.899 [facility] [address] [id number], [place] [id number] Mar, [facility] [address] [id number], [place] [id number] Mar, 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 ; Essential hypertension I10 ; 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 and Hemiparesis affecting left side as late effect of cerebrovascular accident I69.354 [facility] [address], [place] [address] Mar, Psychosis, unspecified psychosis type F29 [facility] [address] [place] [id number] [place] [address] Mar, Psychosis, unspecified psychosis type F29 and 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 [facility] [place] [address] [id number], [place] [id number] Mar, Chronic gastric ulcer, unspecified whether gastric ulcer hemorrhage or perforation present K25.7 [facility] [address] [id number], [place] [id number] Mar, High risk medication use Z79.899 [facility] [address] [id number], [place] [id number] Feb, Encounter for immunization Z23 ; 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 ; Chronic gastric ulcer, unspecified whether gastric ulcer hemorrhage or perforation present K25.7 and Essential hypertension I10 [facility] [address] [id number], [place] [id number] Feb, Essential hypertension I10 [facility] [address], [place] [address] Feb, 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 and Psychosis, unspecified psychosis type F29 [facility] [address] [place] [address] Feb, [facility] [address] [id number], [place] [id number] Feb, [facility] [place] [address] [id number], [place] [id number] Feb, High risk medication use Z79.899 [facility] [id number], [place] [address] Jan, 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 [facility] [address] [id number], [place] [id number] Jan, [facility] [place] [address] [id number], [place] [id number] Jan, [facility] [place] [address] [id number], [place] [id number] Jan, High risk medication use Z79.899 ; Pain in right knee M25.561 ; Knee pain, left anterior M25.562 ; Wheezing R06.2 and Constipation, unspecified constipation type K59.00 [facility] [address], [place] [address] Jan, 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 and Psychosis, unspecified psychosis type F29 [facility] [address], [place] [address] Jan, [facility] [address], [place] [address] Jan, Psychosis, unspecified psychosis type F29 [facility] [place] [address] [id number], [place] [id number] Dec, High risk medication use Z79.899 [facility] [id number], [place] [address] Dec, Psychosis, unspecified psychosis type F29 and 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 [facility] [address] [id number], [place] [id number] Dec, Paranoid schizophrenia F20.0 and Major neurocognitive disorder F03.90 [facility] [address] [facility] [id number] [address] Dec, [facility] [address], [place] [address] Dec, 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 [facility] [id number], [place] [address] Dec, 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 [facility] [id number], [place] [address] Nov, [place] [address] [id number], [place] [id number] Nov, High risk medication use Z79.899 [place] [address], [place] [address] Nov, [place] [address] [place] [id number], [place] [address] Nov, 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 [facility] [address] [id number], [place] [id number] Nov, Paranoid schizophrenia F20.0 and Major neurocognitive disorder F03.90 [facility] [address] [id number], [place] [id number] Oct, [facility] [address] [id number], [place] [id number] Oct, 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 and Essential hypertension I10 [facility] [address] [id number], [place] [id number] Oct, High risk medication use Z79.899 ; Pain in right knee M25.561 ; Knee pain, left anterior M25.562 ; Hemiparesis affecting left side as late effect of stroke I69.354 and Dermatitis L30.[address] [facility] [address] [id number], [place] [id number] Oct, [place] [address] [facility] [id number][place] [address] Oct, 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 [facility] [address] [facility] [id number], [place] [address] Oct, 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 and Psychosis, unspecified psychosis type F29 [address] [id number], [place] [id number] Oct, Major neurocognitive disorder F03.90 and Paranoid schizophrenia F20.[address] [id number], [place] [id number] September, Paranoid schizophrenia F20.[address] [id number], [place] [id number] September, High risk medication use Z79.899 ; Paranoid schizophrenia F20.0 ; Essential hypertension I10 ; Tobacco abuse Z72.0 and Tobacco abuse counseling Z71.[address] [id number], [place] [id number] September, IMMUNIZATIONS No Known Immunizations SOCIAL HISTORY Never Assessed REASON FOR VISIT BH intake - Kai SERRANO, Needs benzo contract if continuing Benzo., 10/13/2016 Ameritox positive for THC. PLAN OF CARE Activity Details Follow Up 4 Weeks Reason: VITAL SIGNS Height 60.1 in 2016-11-09 Weight 109.8 lbs 2016-11-09 Heart Rate 84 bpm 2016-11-09 Respiratory Rate 18 2016-11-09 BMI 21.37 kg/m2 2016-11-09 Blood pressure systolic 100 mmHg 2016-11-09 Blood pressure diastolic 60 mmHg 2016-11-09 MEDICATIONS Medication Instructions Dosage Frequency Start Date End Date Duration Status Hydrochlorothiazide 12.5 MG Orally Once a day 1 capsule in the morning 24h Active Fenofibrate Micronized 67 MG Orally Once a day 1 capsule with a meal 24h Active Seroquel 25 MG Orally dialy as needed for psychosis, anxiety 1 tablet 30 days Active Clopidogrel Bisulfate 75 MG Orally Once a day 1 tablet 24h Active Trazodone HCl 100 mg Orally twice a day 1 tablet 12h 30 days Active Hydrocodone-Acetaminophen 7.5-325 MG Orally 2 times a day 1 tablet as needed for severe pain 12h Active Diazepam 5 MG Orally Once a day 1 tablet as needed 24h 30 days Active Seroquel 100 MG Orally every bedtime 1 tablet Oct, 30 day(s) Active Lisinopril 40 mg Orally Once a day 1 tablet 24h Active RESULTS No Results PROCEDURES Procedure Date Ordered Result Body Site [facility] VISIT ESTABLISHED PATIENT November 09, 2016 INSTRUCTIONS MEDICATIONS ADMINISTERED No Known Medications [...]
--- OUTSIDE RECORDS SUMMARY | 2017-09-16 11:27 | XMS REPORT ---
Author Author THU CHAPPELL [facility] Address [address] [place] [address] Care Team Providers Care Raw Silk Grader Name Role Phone THU CHAPPELL Unavailable PROBLEMS Type Condition ICD9-CM Code NAS34-UL Code Onset Dates Condition Status SNOMED Code Problem Encounter for immunization Z23 Active 238416675 Problem Chronic gastric ulcer, unspecified whether gastric ulcer hemorrhage or perforation present K25.7 Active 56455515 Problem 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 Active 212467815 Problem Other chronic pain G89.29 Active 25300406 Problem Tobacco abuse counseling Z71.6 Active 513002521 Problem Pain in left knee M25.562 Active 992911209917965 Problem Tobacco abuse Z72.0 Active 651502934 Problem High risk medication use Z79.899 Active 211548774190515 Problem Acute exacerbation of chronic obstructive pulmonary disease (COPD) J44.1 Active 063266565 Problem Hemiparesis affecting left side as late effect of cerebrovascular accident I69.354 Active 673060107 Problem Decreased GFR R94.4 Active 43932177 Problem Hyperlipidemia LDL goal <70 E78.5 Active 07466381 Problem Dermatitis L30.9 Active 58616988 Problem Knee pain, left anterior M25.562 Active 600790752 Problem Paranoid schizophrenia F20.0 Active 39122336 Problem Pain in right knee M25.561 Active 08858824 Problem 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 Active 523409596 Problem Major neurocognitive disorder F03.90 Active 329149998 Problem Hemiparesis affecting left side as late effect of stroke I69.354 Active 191250446 Problem Constipation, unspecified constipation type K59.00 Active 17664003 Problem Essential hypertension I10 Active 36469138 Problem Psychosis, unspecified psychosis type F29 Active 81238208 Problem Wheezing R06.2 Active 73502412 ALLERGIES No Information ENCOUNTERS Encounter Location Date Diagnosis [facility] [address] [facility] [id number], [place] [address] Aug, [facility] [address] [id number][place] [address] Jul, Essential hypertension I10 [facility] [address] [address] [id number], [place] [address] Jul, High risk medication use Z79.899 ; Pain in right knee M25.561 ; Pain in left knee M25.562 and Other chronic pain G89.29 [facility] [address] [id number][place] [id number] Jun, [facility] [address] [facility] [id number], [place] [address] Jun, Psychosis, unspecified psychosis type F29 and 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 [facility] [address]00565100[place], [place] [address] Jun, [facility] [address] [id number][place] [id number] Jun, High risk medication use Z79.899 [facility] [address] [id number], [place] [address] Jun, [facility] [address] [id number][place] [id number] Jun, [facility] [address] [id number], [place] [address] Jun, [facility] [address] [id number], [place] [address] Jun, Tobacco abuse Z72.0 [facility] [address] [facility] [id number], [place] [address]368[address] May, [facility] [address] [id number][place] [address] May, [facility] [address] [id number][place] [address] May, Essential hypertension I10 ; Tobacco abuse Z72.0 ; Tobacco abuse counseling Z71.6 and Decreased GFR R94.4 [place] [address]00565100[place], [place] [address] May, [place] [address]65100[place], [place] [address] May, Psychosis, unspecified psychosis type F29 and 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 [address] [id number][place] [address] May, Constipation, unspecified constipation type K59.[address] [id number], [place] [address]2317 May, High risk medication use Z79.[address] [id number][place] [address]06[address] May, Hyperlipidemia LDL goal <70 E78.5 and Decreased GFR R94.[address] [id number], [place] 56[address]25[address] May, Essential hypertension I10 and Acute exacerbation of chronic obstructive pulmonary disease (COPD) J44.1 [place] [address] [id number], [place] [address] Apr, Psychosis, unspecified psychosis type F29 [place] [place] [address] [facility] [address] [id number], [place] [id number] Apr, Hemiparesis affecting left side as late effect of cerebrovascular accident I69.354 [place] [id number] [place] [address] Apr, Psychosis, unspecified psychosis type F29 [place] [address] 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 and Hemiparesis affecting left side as late effect of cerebrovascular accident I69.354 [facility] [address]00565100[place], [place] [address] Mar, Psychosis, unspecified psychosis type F29 [facility] [address]00565100[place], [place] [address] Mar, Psychosis, unspecified psychosis type F29 and 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 [facility] [address] [id number], [place] 1913338[address] Mar, Chronic gastric ulcer, unspecified whether gastric ulcer hemorrhage or perforation present K25.7 [facility] [address] [id number], [place] 077361437 Mar, High risk medication use Z79.899 [facility] [address] [id number][place] [address] Feb, Encounter for immunization Z23 ; 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 ; Chronic gastric ulcer, unspecified whether gastric ulcer hemorrhage or perforation present K25.7 and Essential hypertension I10 [facility] [address] [id number], [place] [address] Feb, Essential hypertension I10 [facility] [address]00565100[place], [place] [address] Feb, 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 [facility] [address] [id number], [place] [address] Nov, [facility] [address] [id number], [place] [address]89[address] Nov, High risk medication use Z79.899 [place] [address]00565100[place], [place] [address] Nov, [facility] [address] [id number], [place] [address] Nov, 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 [facility] [address] [id number], [place] [address]85 Nov, Paranoid schizophrenia F20.0 and Major neurocognitive disorder F03.90 [facility] [address] [id number], [place] 973722874 Oct, [facility] [address] [id number], [place] [address]25553781 Oct, 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 and Essential hypertension I10 [facility] [address] [id number], [place] 768047585 Oct, High risk medication use Z79.899 ; Pain in right knee M25.561 ; Knee pain, left anterior M25.562 ; Hemiparesis affecting left side as late effect of stroke I69.354 and Dermatitis L30.[address] [facility] [address] [id number] [place] [id number] Oct, [facility] [address] [facility] [id number], [place] [address]31661- [address] Oct, 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 [facility] [address] [facility] [id number] [place] [address] Oct, 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 and Psychosis, unspecified psychosis type F29 [address] [id number], [place] [address]29087587 Oct, Major neurocognitive disorder F03.90 and Paranoid schizophrenia F20.[address] [id number], [place] 864314872 September, Paranoid schizophrenia F20.[address] [id number], [place] 993233797 September, High risk medication use Z79.899 ; Paranoid schizophrenia F20.0 ; Essential hypertension I10 ; Tobacco abuse Z72.0 and Tobacco abuse counseling Z71.[address] [id number], [place] [address]177226[address] September, IMMUNIZATIONS No Known Immunizations SOCIAL HISTORY Never Assessed REASON FOR VISIT results PLAN OF CARE VITAL SIGNS MEDICATIONS Medication Instructions Dosage Frequency Start Date End Date Duration Status Naproxen 250 MG Orally Twice a day 1 tablet 12h Oct, Dec, 30 day(s) Active Fenofibrate Micronized 134 MG Orally Once a day 1 capsule with a meal 24h 90 days Active RESULTS No Results PROCEDURES No [...]
--- OUTSIDE RECORDS SUMMARY | 2017-09-16 11:27 | XMS REPORT ---
Author Author THU CHAPPELL [facility] Address [address] [place] [address] Care Team Providers Care Technical Report Writer Name Role Phone THU CHAPPELL Unavailable PROBLEMS Type Condition ICD9-CM Code HWG01-OF Code Onset Dates Condition Status SNOMED Code Problem Encounter for immunization Z23 Active 694002652 Problem Chronic gastric ulcer, unspecified whether gastric ulcer hemorrhage or perforation present K25.7 Active 50208176 Problem 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 Active 724037003 Problem Other chronic pain G89.29 Active 99856662 Problem Tobacco abuse counseling Z71.6 Active 012426085 Problem Pain in left knee M25.562 Active 012378338043398 Problem Tobacco abuse Z72.0 Active 626261937 Problem High risk medication use Z79.899 Active 727447499919186 Problem Acute exacerbation of chronic obstructive pulmonary disease (COPD) J44.1 Active 737769407 Problem Hemiparesis affecting left side as late effect of cerebrovascular accident I69.354 Active 442620379 Problem Decreased GFR R94.4 Active 01187621 Problem Hyperlipidemia LDL goal <70 E78.5 Active 30613626 Problem Dermatitis L30.9 Active 24851736 Problem Knee pain, left anterior M25.562 Active 411599614 Problem Paranoid schizophrenia F20.0 Active 21986864 Problem Pain in right knee M25.561 Active 72977800 Problem 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 Active 462134252 Problem Major neurocognitive disorder F03.90 Active 933261595 Problem Hemiparesis affecting left side as late effect of stroke I69.354 Active 075255980 Problem Constipation, unspecified constipation type K59.00 Active 05419575 Problem Essential hypertension I10 Active 57136140 Problem Psychosis, unspecified psychosis type F29 Active 38079112 Problem Wheezing R06.2 Active 34246831 ALLERGIES No Information ENCOUNTERS Encounter Location Date Diagnosis [facility] [address] [facility] [id number], [place] [address] Aug, [facility] [address] [id number], [place] [address] Jul, Essential hypertension I10 [facility] [address] [address] [id number], [place] [address] Jul, High risk medication use Z79.899 ; Pain in right knee M25.561 ; Pain in left knee M25.562 and Other chronic pain G89.29 [facility] [address] [id number], [place] [address] Jun, [facility] [address] [facility] [id number], [place] [address] Jun, Psychosis, unspecified psychosis type F29 and 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 [facility] [address]00565100[place], [place] [address] Jun, [facility] [address] [id number], [place] [address] Jun, High risk medication use Z79.899 [facility] [address] [id number], [place] [address] Jun, [facility] [address] [id number], [place] 83[address] Jun, [facility] [address] [id number], [place] [address] Jun, [facility] [address] [id number], [place] [address] Jun, Tobacco abuse Z72.0 [facility] [address] [facility] [id number], [place]054[address] May, [facility] [address] [id number], [place] [address] May, [facility] [address] [id number], [place] 3539677[address] May, Essential hypertension I10 ; Tobacco abuse Z72.0 ; Tobacco abuse counseling Z71.6 and Decreased GFR R94.4 [place] [address]00565100[place], [place] [address] May, [place] [address]00565100[place], [place] [address]- [address] May, Psychosis, unspecified psychosis type F29 and 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 [facility] [address] [id number], [place] 417889604 May, Constipation, unspecified constipation type K59.[address] [id number], [place] 267775698 May, High risk medication use Z79.[address] [id number], [place] 00[address] May, Hyperlipidemia LDL goal <70 E78.5 and Decreased GFR R94.[address] [id number], [place] 206165982 May, Essential hypertension I10 and Acute exacerbation of chronic obstructive pulmonary disease (COPD) J44.1 [place] [address] [id number], [place] [address] Apr, Psychosis, unspecified psychosis type F29 [place] [address] [facility] [address] [id number], [place] 731566[address] Apr, Hemiparesis affecting left side as late effect of cerebrovascular accident I69.354 [place] [id number] [place] [address] Apr, Psychosis, unspecified psychosis type F29 [place] [address] [facility] [address] [id number], [place] 911184405 Apr, [address] [id number], [place] 574351334 Apr, High risk medication use Z79.899 [facility] [address] [id number] [place] [address] Mar, [facility] [address] [id number], [place] 922977[address] Mar, 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 ; Essential hypertension I10 ; 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 and Hemiparesis affecting left side as late effect of cerebrovascular accident I69.354 [facility] [address]00565100[place], [place] [address] Mar, Psychosis, unspecified psychosis type F29 [facility] [address]00565100[place], [place] [address] Mar, Psychosis, unspecified psychosis type F29 and 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 [facility] [address] [id number], [place] [address] Mar, Chronic gastric ulcer, unspecified whether gastric ulcer hemorrhage or perforation present K25.7 [facility] [address] [id number], [place] 328146220 Mar, High risk medication use Z79.899 [facility] [address] [id number], [place] 3348[address] Feb, Encounter for immunization Z23 ; 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 ; Chronic gastric ulcer, unspecified whether gastric ulcer hemorrhage or perforation present K25.7 and Essential hypertension I10 [facility] [address] [id number], [place] 399271579 Feb, Essential hypertension I10 [facility] [address]00565100[place], [place] [address] Feb, 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 and Psychosis, unspecified psychosis type F29 [facility] [address]00565100[place], [place] [address] Feb, [facility] [address] [id number] [place] [address] Feb, [facility] [address] [facility] [address] [id number], [place] [address] Feb, High risk medication use Z79.899 [place] [address] [id number], [place] [address] Jan, 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 [facility] [address] [id number], [place] 127955491 Jan, [facility] [address] [facility] [address] [id number], [place] 35[address] Jan, [facility] [address] [id number], [place] 9[address]856[address] Jan, High risk medication use Z79.899 ; Pain in right knee M25.561 ; Knee pain, left anterior M25.562 ; Wheezing R06.2 and Constipation, unspecified constipation type K59.00 [place] [address]00565100[place], [place] [address] Jan, 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 and Psychosis, unspecified psychosis type F29 [facility] [address]00565100[place], [place] [address] Jan, [place] [address]00565100[place], [place] [address]- [address] Jan, Psychosis, unspecified psychosis type F29 [place] [address] [facility] [address] [id number], [place] 283467423 Dec, High risk medication use Z79.899 [place] [address]00565[address], [place] [address]- [address] Dec, Psychosis, unspecified psychosis type F29 and 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 [facility] [address] [facility] [address] [id number], [place] [address]98808142 Dec, Paranoid schizophrenia F20.0 and Major neurocognitive disorder F03.90 [facility] [address] [facility] [id number] [address] Dec, [facility] [address]00565100[place], [place] [address]- [address] Dec, 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 [facility] [address] [id number], [place] [address]- [address]007 Dec, 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 [facility] [address] [id number], [place] [address]- [address] Nov, [facility] [address] [id number], [place] 79[address] Nov, High risk medication use Z79.899 [place] [address]00565100[place], [place] [address] Nov, [facility] [address] [id number], [place] [address]- [address] Nov, 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 [facility] [address] [id number], [place] 5856530[address] Nov, Paranoid schizophrenia F20.0 and Major neurocognitive disorder F03.90 [facility] [address] [id number], [place] 830035865 Oct, [facility] [address] [id number], [place] 800246609 Oct, 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 and Essential hypertension I10 [facility] [address] [id number], [place] 504641879 Oct, High risk medication use Z79.899 ; Pain in right knee M25.561 ; Knee pain, left anterior M25.562 ; Hemiparesis affecting left side as late effect of stroke I69.354 and Dermatitis L30.[address] [facility] [address] [id number] [place] [address] Oct, [facility] [address] [facility] [id number] [place] [address]- [address] Oct, 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 [facility] [address] [facility] [id number] [place] [address]- [address] Oct, 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 and Psychosis, unspecified psychosis type F29 [address] [id number], [place] 198815148 Oct, Major neurocognitive disorder F03.90 and Paranoid schizophrenia F20.[address] [id number], [place] 147717377 September, Paranoid schizophrenia F20.[address] [id number], [place] 202408267 September, High risk medication use Z79.899 ; Paranoid schizophrenia F20.0 ; Essential hypertension I10 ; Tobacco abuse Z72.0 and Tobacco abuse counseling Z71.[address] [id number], [place] [address]6943[address] September, IMMUNIZATIONS No Known Immunizations SOCIAL HISTORY Never Assessed REASON FOR VISIT results PLAN OF CARE VITAL SIGNS MEDICATIONS Unknown [...]
--- OUTSIDE RECORDS SUMMARY | 2017-09-16 11:28 | XMS REPORT ---
Author Author GARETH ENRIQUE Organization [facility] Address [address] [place] [address] Care Team Providers Care Utilization Manager Name Role Phone GARETH ENRIQUE Unavailable PROBLEMS Type Condition ICD9-CM Code FFD51-UN Code Onset Dates Condition Status SNOMED Code Problem Encounter for immunization Z23 Active 831262475 Problem Chronic gastric ulcer, unspecified whether gastric ulcer hemorrhage or perforation present K25.7 Active 98579018 Problem 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 Active 471427183 Problem Other chronic pain G89.29 Active 79904973 Problem Tobacco abuse counseling Z71.6 Active 716985846 Problem Pain in left knee M25.562 Active 231373488399626 Problem Tobacco abuse Z72.0 Active 473047151 Problem High risk medication use Z79.899 Active 497601215800911 Problem Acute exacerbation of chronic obstructive pulmonary disease (COPD) J44.1 Active 718394063 Problem Hemiparesis affecting left side as late effect of cerebrovascular accident I69.354 Active 089500948 Problem Decreased GFR R94.4 Active 32218722 Problem Hyperlipidemia LDL goal <70 E78.5 Active 05858314 Problem Dermatitis L30.9 Active 98391497 Problem Knee pain, left anterior M25.562 Active 218758501 Problem Paranoid schizophrenia F20.0 Active 48243350 Problem Pain in right knee M25.561 Active 28623342 Problem 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 [id number] [id number] Aug, Essential hypertension I10 [facility] [address] [id number] [place] [address] Aug, [facility] [address] [id number] [place] [address] Aug, Pain in right knee M25.561 [facility] [address] [id number] [place] [address] Aug, [facility] [address] [id number] [place] [address] Jul, Essential hypertension I10 [facility] [address] [facility] [address] [id number] [place] [address] Jul, High risk medication use Z79.899 ; Pain in right knee M25.561 ; Pain in left knee M25.562 and Other chronic pain G89.29 [facility] [address] [id number] [place] [address] Jun, [facility] [address] [id number], [place] [address] Jun, Psychosis, unspecified psychosis type F29 and 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 [facility] [address] [id number], [place] [address] Jun, [facility] [address] [id number] [place] [address] Jun, High risk medication use Z79.899 [facility] [address] [id number], [place] [address] Jun, [facility] [address] [id number] [place] [id number] Jun, [facility] [address] [id number] [address] Jun, [facility] [address]00565[address], [place] [address] Jun, Tobacco abuse Z72.0 [facility] [address] [id number], [place] [address] May, [facility] [address] [facility] [address] [id number] [place] [address] May, [facility] [address] [place] [address] AV [id number] [place] [address] May, Essential hypertension I10 ; Tobacco abuse Z72.0 ; Tobacco abuse counseling Z71.6 and Decreased GFR R94.4 [facility] [address] [facility] [id number], [place] [address] May, [facility] [address]00565100[place], [place] [address] May, Psychosis, unspecified psychosis type F29 and 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 [facility] [address] [facility] [address] [id number] [place] [address]104[address] May, Constipation, unspecified constipation type K59.[address] [id number] [place] 125758[address] May, High risk medication use Z79.[address] [id number] [place] [address]672284 May, Hyperlipidemia LDL goal <70 E78.5 and Decreased GFR R94.[address] [id number] [place] [address]40[address] May, Essential hypertension I10 and Acute exacerbation of chronic obstructive pulmonary disease (COPD) J44.1 [facility] [address] [facility] [id number], [place] [address] Apr, Psychosis, unspecified psychosis type F29 [address] [id number] [place] 18848[address]75 Apr, Hemiparesis affecting left side as late effect of cerebrovascular accident I69.354 [address] [facility] [id number], [place] [address] Apr, Psychosis, unspecified psychosis type F29 [facility] [address] [id number] [place] [address] Apr, [facility] [address] [id number] [place] [address]403 Apr, High risk medication use Z79.[address] [facility] [address] [id number] [place] [address] Mar, [facility] [address] [id number] [place] 528[address] Mar, 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 ; Essential hypertension I10 ; 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 and Hemiparesis affecting left side as late effect of cerebrovascular accident I69.354 [place] [address]005[address]100[place], [place] [address] Mar, Psychosis, unspecified psychosis type F29 [place] [address] [id number], [place] [address] Mar, Psychosis, unspecified psychosis type F29 and 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 [facility] [address] [facility] [address] [id number] [place] 569[address] Mar, Chronic gastric ulcer, unspecified whether gastric ulcer hemorrhage or perforation present K25.7 [facility] [address] [id number] [place] [address]265[address] Mar, High risk medication use Z79.899 [facility] [address] [id number] [place] [address] Feb, Encounter for immunization Z23 ; 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 ; Chronic gastric ulcer, unspecified whether gastric ulcer hemorrhage or perforation present K25.7 and Essential hypertension I10 [facility] [address] [id number] [place] [address]87488[address] Feb, Essential hypertension I10 [place] [address] [id number], [place] [address] Feb, 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 and Psychosis, unspecified psychosis type F29 [place] [address] [id number], [place] [address] Feb, [facility] [address] [id number] [place] [address] Feb, [facility] [address] [id number] [place] [address] Feb, High risk medication use Z79.899 [place] [address]00565100[place], [place] [address] Jan, 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 [facility] [address] [id number] [place] [address] Jan, [facility] [address] [id number] [place] [address] Jan, [facility] [address] [facility] [address] [id number] [place] 643636175 Jan, High risk medication use Z79.899 ; Pain in right knee M25.561 ; Knee pain, left anterior M25.562 ; Wheezing R06.2 and Constipation, unspecified constipation type K59.00 [place] [address] [id number], [place] [address] Jan, 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 and Psychosis, unspecified psychosis type F29 [place] [address]00565100[place], [place] [address] Jan, [place] [address]00565100[place], [place] [address] Jan, Psychosis, unspecified psychosis type F[address] [id number] [place] [address] Dec, High risk medication use Z79.899 [facility] [address] [facility] [id number], [place] [address] Dec, Psychosis, unspecified psychosis type F29 and Mild neurocognitive disorder due to another medical condition G31.[address] [facility] [address] [id number] [place] [address] Dec, Paranoid schizophrenia F20.0 and Major neurocognitive disorder F03.90 [facility] [address] [facility] [id number], [place] [address] Dec, [facility] [address] [facility] [id number], [place] [address] Dec, 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 [facility] [address] [id number], [place] [address] Dec, 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 [facility] [address] [id number], [place] [address] Nov, [facility] [address] [facility] [address] [id number] [place] [address] Nov, High risk medication use Z79.899 [facility] [address] [id number], [place] [address] Nov, [facility] [address] [id number], [place] [address] Nov, Mild neurocognitive disorder due to another medical condition G31.[address] [facility] [address] [id number] [place] [address]30438 Nov, Paranoid schizophrenia F20.0 and Major neurocognitive disorder F03.[address] [facility] [address] [id number] [place] [address] Oct, [facility] [address] [address] [id number] [place] 910596930 Oct, 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 and Essential hypertension I10 [address] [id number] [place] 380419262 Oct, High risk medication use Z79.899 ; Pain in right knee M25.561 ; Knee pain, left anterior M25.562 ; Hemiparesis affecting left side as late effect of stroke I69.354 and Dermatitis L30.[address] [id number] [place] 135785144 Oct, [place] [address] [id number], [place] [address] Oct, 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 [address] [address], [place] [address] Oct, 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 and Psychosis, unspecified psychosis type F29 [address] [id number] [place] 449750469 Oct, Major neurocognitive disorder F03.90 and Paranoid schizophrenia F20.[address] [id number] [place], [place] 861969497 September, Paranoid schizophrenia F20.[address] [id number] [place] 545536894 September, High risk medication use Z79.899 ; Paranoid schizophrenia F20.0 ; Essential hypertension I10 ; Tobacco abuse Z72.0 and Tobacco abuse counseling Z71.[address] [id number] [place] [address]6076585 September, IMMUNIZATIONS No Known Immunizations SOCIAL HISTORY Never Assessed REASON FOR VISIT Refill request PLAN OF CARE VITAL SIGNS MEDICATIONS Medication Instructions Dosage Frequency Start Date End Date Duration Status Trazodone HCl 100 mg Orally Once a day 1 tablet at night as needed for sleep 24h 30 days Active RESULTS No Results PROCEDURES [...]
--- OUTSIDE RECORDS SUMMARY | 2017-09-16 11:28 | XMS REPORT ---
Author Author THU CHAPPELL [facility] Address [address] [place] [address] Care Team Providers Care Mixer Operator Name Role Phone THU CHAPPELL Unavailable PROBLEMS Type Condition ICD9-CM Code ITJ75-GU Code Onset Dates Condition Status SNOMED Code Problem Encounter for immunization Z23 Active 436799049 Problem Chronic gastric ulcer, unspecified whether gastric ulcer hemorrhage or perforation present K25.7 Active 91779395 Problem 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 Active 689129443 Problem Other chronic pain G89.29 Active 02275077 Problem Tobacco abuse counseling Z71.6 Active 837989925 Problem Pain in left knee M25.562 Active 168486220305448 Problem Tobacco abuse Z72.0 Active 545077308 Problem High risk medication use Z79.899 Active 066695064212749 Problem Acute exacerbation of chronic obstructive pulmonary disease (COPD) J44.1 Active 957924763 Problem Hemiparesis affecting left side as late effect of cerebrovascular accident I69.354 Active 974501356 Problem Decreased GFR R94.4 Active 82996815 Problem Hyperlipidemia LDL goal <70 E78.5 Active 67571209 Problem Dermatitis L30.9 Active 72662668 Problem Knee pain, left anterior M25.562 Active 434869336 Problem Paranoid schizophrenia F20.0 Active 40357859 Problem Pain in right knee M25.561 Active 94390053 Problem 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 Active 803658502 Problem Major neurocognitive disorder F03.90 Active 566535330 Problem Hemiparesis affecting left side as late effect of stroke I69.354 Active 618054172 Problem Constipation, unspecified constipation type K59.00 Active 31860145 Problem Essential hypertension I10 Active 55785421 Problem Psychosis, unspecified psychosis type F29 Active 94216084 Problem Wheezing R06.2 Active 02443613 ALLERGIES No Information ENCOUNTERS Encounter Location Date Diagnosis [facility] [address] [facility] [id number] [address] Aug, [facility] [address] [address] [id number], [place] [address] Jul, Essential hypertension I10 [facility] [address] [address] [id number], [place] [address] Jul, High risk medication use Z79.899 ; Pain in right knee M25.561 ; Pain in left knee M25.562 and Other chronic pain G89.29 [facility] [address] [id number], [place] [address] Jun, [facility] [address] [facility] [id number] [place] [address] Jun, Psychosis, unspecified psychosis type F29 and 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 [facility] [address]00565100[place] [address] Jun, [facility] [address] [id number], [place] 943880211 Jun, High risk medication use Z79.899 [facility] [address] [id number] [address] Jun, [facility] [address] [id number], [place] [address] Jun, [facility] [address] [id number] [address] Jun, [facility] [address] [id number] [address] Jun, Tobacco abuse Z72.0 [facility] [address] [facility] [id number] [place] May, [facility] [address] [id number], [place] 1728[address]189 May, [facility] [address] [id number], [place] [address] May, Essential hypertension I10 ; Tobacco abuse Z72.0 ; Tobacco abuse counseling Z71.6 and Decreased GFR R94.4 [address]005[address]100[place] [address] May, [address] [address]100[place] [address] May, Psychosis, unspecified psychosis type F29 and 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 [facility] [address] [id number], [place] [address] May, Constipation, unspecified constipation type K59.[address] [id number], [place] 562609316 May, High risk medication use Z79.[address] [id number], [place] 533290099 May, Hyperlipidemia LDL goal <70 E78.5 and Decreased GFR R94.[address] [id number], [place] 044072116 May, Essential hypertension I10 and Acute exacerbation of chronic obstructive pulmonary disease (COPD) J44.1 [place] [address] [id number] [address] Apr, Psychosis, unspecified psychosis type F29 [address] [facility] [address] [id number], [place] [address]89[address] Apr, Hemiparesis affecting left side as late effect of cerebrovascular accident I69.354 [address] [id number] [place] [address] Apr, Psychosis, unspecified psychosis type F29 [address] [facility] [address] [id number], [place] [address] Apr, [address] [id number], [place] 6[address] Apr, High risk medication use Z79.899 [facility] [address] [id number] [place] [address] Mar, [facility] [address] [id number], [place] [address]6498111 Mar, 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 ; Essential hypertension I10 ; 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 and Hemiparesis affecting left side as late effect of cerebrovascular accident I69.354 [facility] [address]00565100[place] [address] Mar, Psychosis, unspecified psychosis type F29 [facility] [address]00565100[place] [address] Mar, Psychosis, unspecified psychosis type F29 and 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 [facility] [address] [id number], [place] [address] Mar, Chronic gastric ulcer, unspecified whether gastric ulcer hemorrhage or perforation present K25.7 [facility] [address] [id number], [place] [address]17 Mar, High risk medication use Z79.899 [facility] [address] [id number], [place] 510374791 Feb, Encounter for immunization Z23 ; 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 ; Chronic gastric ulcer, unspecified whether gastric ulcer hemorrhage or perforation present K25.7 and Essential hypertension I10 [facility] [address] [id number], [place] 86[address] Feb, Essential hypertension I10 [facility] [address]00565100[place] [address] Feb, 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 and Psychosis, unspecified psychosis type F29 [facility] [address]00565100[place] [address] Feb, [facility] [address] [id number] [place] [address] Feb, [facility] [address] [facility] [address] [id number], [place] [address] Feb, High risk medication use Z79.899 [place] [address] [id number] [address] Jan, 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 [facility] [address] [id number], [place] 015843767 Jan, [facility] [address] [facility] [address] [id number], [place] [address] Jan, [facility] [address] [id number], [place] [address] Jan, High risk medication use Z79.899 ; Pain in right knee M25.561 ; Knee pain, left anterior M25.562 ; Wheezing R06.2 and Constipation, unspecified constipation type K59.00 [place] [address]00565100[place] [address] Jan, 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 and Psychosis, unspecified psychosis type F29 [facility] [address]00565100[place] [address]- [address] Jan, [place] [address]65100[place] [address]- [address] Jan, Psychosis, unspecified psychosis type F29 [address] [facility] [address] [id number], [place] 650762345 Dec, High risk medication use Z79.899 [place] [address]65100[place] [address] Dec, Psychosis, unspecified psychosis type F29 and 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 [facility] [address] [facility] [address] [id number], [place] [address]686 Dec, Paranoid schizophrenia F20.0 and Major neurocognitive disorder F03.90 [facility] [address] [facility] [id number] [place] [address]- [address] Dec, [facility] [address]65100[place] [address]- [address] Dec, 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 [facility] [address] [id number] [address]- [address] Dec, 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 [facility] [address] [id number] [address] Nov, [facility] [address] [id number], [place] 355245880 Nov, High risk medication use Z79.899 [place] [address]100[place] [address]- [address] Nov, [facility] [address] [id number] [address]- [address] Nov, 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 [facility] [address] [id number], [place] 953960029 Nov, Paranoid schizophrenia F20.0 and Major neurocognitive disorder F03.90 [facility] [address] [id number], [place] [address] Oct, [facility] [address] [id number], [place] 7532[address]13 Oct, 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 and Essential hypertension I10 [facility] [address] [id number], [place] 287[address]39 Oct, High risk medication use Z79.899 ; Pain in right knee M25.561 ; Knee pain, left anterior M25.562 ; Hemiparesis affecting left side as late effect of stroke I69.354 and Dermatitis L30.[address] [facility] [address] [id number] [place] [id number] Oct, [facility] [address] [facility] [id number] [place] [address] Oct, 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 [facility] [address] [facility] [id number] [place] [address] Oct, 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 and Psychosis, unspecified psychosis type F29 [address] [id number], [place] [address]96[address]23 Oct, Major neurocognitive disorder F03.90 and Paranoid schizophrenia F20.[address] [id number], [place] 0176223[address] September, Paranoid schizophrenia F20.[address] [id number], [place] 262734719 September, High risk medication use Z79.899 ; Paranoid schizophrenia F20.0 ; Essential hypertension I10 ; Tobacco abuse Z72.0 and Tobacco abuse counseling Z71.[address] [id number], [place] 638847307 September, IMMUNIZATIONS No Known Immunizations SOCIAL HISTORY Never Assessed REASON FOR VISIT med refill PLAN OF CARE VITAL SIGNS MEDICATIONS Medication Instructions Dosage Frequency Start Date End Date Duration Status Hydrocodone-Acetaminophen 7.5-325 MG Orally 2 times a day 1 tablet as needed for severe pain 12h Active RESULTS No Results PROCEDURES No [...] 50% blockage bilat from 2014 Medical History -2017 CVD risk 27% Surgical [...]
[2017-09-16] MEDS ORDERED: FENO134C PO (11:30)
[2017-09-16] MEDS ORDERED: CLOP75TA28 (11:30)
[2017-09-16] MEDS ORDERED: HYDROCHLOROT (11:30)
[2017-09-16] MEDS ORDERED: DOCU100C37 PO (11:30)
[2017-09-16] MEDS ORDERED: LISI40TA PO (11:36)
[2017-09-16] MEDS ORDERED: AMLODIPINE (11:36)
--- NOTE | 2017-09-16 11:36 | ED Psychosocial ---
General Chief Complaint: Psych/Social Disorder Stated Complaint: PSYCH EVAL History of Present Illness Date Seen by Provider: September 16, 2017 Time Seen by Provider: 11:15 Initial Comments 67-year-old female presents for confusion, hearing voices, and failure on a welfare check. Her daughter usually manages her healthcare and she is out of town. Her granddaughter reports she took her medication today. She is alert, oriented to person, place and time. She does report auditory hallucinations, telling her "stay on earth" she denies visual hallucinations. She is able to answer questions appropriately, however she also goes off subject and has flight of ideas. Spoke with her daughter by phone, she is in [place], [place], at this time. She is her primary caregiver and the patient has had increased symptoms of her schizophrenia since she had to leave town last due to her son being injured. Patient's granddaughter and son-in-law have been providing her care. Her daughter believes the change in environment and care providers has increased her confusion and agitation. The patient was diagnosed with schizophrenia approximately 8 years ago she has been on Haldol and Seroquel but had significant side effects and had to discontinue that, she' s been on Abilify for the last 3 months. She sees Sandra Plummer, for her mental health care. She was scheduled for an appointment this week but had to cancel due to her daughter being out of town. Her daughter reports she hears voices on a continual basis, she is usually able to redirect her and it helps with the management. The patient reports no suicidal or homicidal ideations. She also has a history of dementia Timing/Duration: intermittent Allergies and Home Medications Allergies Coded Allergies: No Known Drug Allergies (Unverified , 09/16/17) Home Medications Atorvastatin Calcium 10 Mg Tablet, 10 MG PO HS, (Reported) Lisinopril 40 Mg Tablet, 40 MG PO DAILY, (Reported) Pantoprazole Sodium 40 Mg Tablet.dr, 40 MG PO DAILY, (Reported) Patient Home Medication List Home Medication List Reviewed: Yes Constitutional: no symptoms reported, see HPI Gastrointestinal: see HPI; No abdominal pain; diarrhea, loss of appetite Psychiatric/Neurological: See HPI, Emotional Problems, Other (auditory hallucinations) All Other Systems Reviewed Negative Unless Noted: Yes Past Oovlnlx-[id number]-Yrfqht Hx Past Med/Social Hx: Reviewed Nursing Past Med/Soc Hx Patient Social History Alcohol Use: Past History Recreational Drug Use: Yes (PAST USE ) Smoking Status: Current Everyday Smoker Past Medical History Surgeries: Yes Hysterectomy Cardiac: No Neurological: No Genitourinary: No Gastrointestinal: No Endocrine: No HEENT: No Cancer: No Psychosocial: Yes Schizophrenia Physical Exam Vital Signs Vital Signs - First Documented 09/16/17 09/16/17 12:03 13:57 Temp 98.4 Pulse 100 Resp 18 B/P (MAP) 109/85 (93) Pulse Ox 98 O2 Delivery Simple Mask Capillary Refill : General Appearance: WD/WN, no apparent distress HEENT: PERRL/EOMI, normal ENT inspection, TMs normal, pharynx normal, other ( oral mucosa pink and dry) Neck: non-tender, full range of motion, supple, normal inspection Respiratory: chest non-tender, lungs clear, normal breath sounds Cardiovascular: normal peripheral pulses, regular rate, rhythm, no murmur Gastrointestinal: normal bowel sounds, non tender, soft Neurologic/Psychiatric: no motor/sensory deficits, alert Appearance/Memory: disheveled, impaired insight Behavior/Eye Contact: cooperative, good eye contact, decreased rate of speech Thoughts/Hallucinations: auditory hallucinations, delusions, flight of ideas Skin: normal color, warm/dry Lymphatic: no adenopathy Progress/Results/Core Measures Lab Results Laboratory Tests Test 09/16/17 11:38 09/16/17 11:45 Range/Units Urine Color YELLOW Urine Clarity CLEAR Urine pH 6.5 5-9 Urine Specific [place] 1.010 L 1.016-1.022 Urine Protein NEGATIVE NEGATIVE Urine Glucose (UA) NEGATIVE NEGATIVE Urine Ketones NEGATIVE NEGATIVE Urine Nitrite NEGATIVE NEGATIVE Urine Bilirubin NEGATIVE NEGATIVE Urine Urobilinogen NORMAL NORMAL MG/DL Urine Leukocyte Esterase NEGATIVE NEGATIVE Urine RBC (Auto) NEGATIVE NEGATIVE Urine RBC NONE /HPF Urine WBC RARE /HPF Urine Squamous Epithelial Cells 0-2 /HPF Urine Crystals NONE /LPF Urine Bacteria NEGATIVE /HPF Urine Casts NONE /LPF Urine Mucus NEGATIVE /LPF Urine Culture Indicated NO Urine Opiates Screen NEGATIVE NEGATIVE Urine Oxycodone Screen NEGATIVE NEGATIVE Urine Methadone Screen NEGATIVE NEGATIVE Urine Propoxyphene Screen NEGATIVE NEGATIVE Urine Barbiturates Screen NEGATIVE NEGATIVE Ur Tricyclic Antidepressants Screen NEGATIVE NEGATIVE Urine Phencyclidine Screen NEGATIVE NEGATIVE Urine Amphetamines Screen NEGATIVE NEGATIVE Urine Methamphetamines Screen NEGATIVE NEGATIVE Urine Benzodiazepines Screen NEGATIVE NEGATIVE Urine Cocaine Screen NEGATIVE NEGATIVE Urine Cannabinoids Screen NEGATIVE NEGATIVE White Blood Count 14.6 H 4.3-11.0 10^3/uL Red Blood Count 4.75 4.35-5.85 10^6/uL Hemoglobin 11.9 11.5-16.0 G/DL Hematocrit 36 35-52 % Mean Corpuscular Volume 77 L 80-99 FL Mean Corpuscular Hemoglobin 25 25-34 PG Mean Corpuscular Hemoglobin Concent 33 32-36 G/DL Red Cell Distribution Width 14.4 10.0-14.5 % Platelet Count 428 H 130-400 10^3/uL Mean Platelet Volume 8.9 7.4-10.4 FL Neutrophils (%) (Auto) 79 H 42-75 % Lymphocytes (%) (Auto) 11 L 12-44 % Monocytes (%) (Auto) 6 0-12 % Eosinophils (%) (Auto) 5 0-10 % Basophils (%) (Auto) 0 0-10 % Neutrophils # (Auto) 11.5 H 1.8-7.8 X 10^3 Lymphocytes # (Auto) 1.5 1.0-4.0 X 10^3 Monocytes # (Auto) 0.8 0.0-1.0 X 10^3 Eosinophils # (Auto) 0.7 H 0.0-0.3 10^3/uL Basophils # (Auto) 0.1 0.0-0.1 10^3/uL Neutrophils % (Manual) 75 % Lymphocytes % (Manual) 12 % Monocytes % (Manual) 4 % Eosinophils % (Manual) 5 % Basophils % (Manual) 1 % Band Neutrophils 3 % Blood Morphology Comment NORMAL Sodium Level 134 L 135-145 MMOL/L Potassium Level 3.3 L 3.6-5.0 MMOL/L Chloride Level 100 98-107 MMOL/L Carbon Dioxide Level 23 21-32 MMOL/L Anion Gap 11 5-14 MMOL/L Blood Urea Nitrogen 29 H 7-18 MG/DL Creatinine 0.93 0.60-1.30 MG/DL Estimat Glomerular Filtration Rate > 60 BUN/Creatinine Ratio 31 Glucose Level 105 70-105 MG/DL Calcium Level 9.7 8.5-10.1 MG/DL Total Bilirubin 0.6 0.1-1.0 MG/DL Aspartate Amino Transf (AST/SGOT) 27 5-34 U/L Alanine Aminotransferase (ALT/SGPT) 24 0-55 U/L Alkaline Phosphatase 79 40-136 U/L Total Protein 7.2 6.4-8.2 GM/DL Albumin 4.2 3.2-4.5 GM/DL Salicylates Level < 5.0 L 5.0-20.0 MG/DL Acetaminophen Level < 10 L 10-30 UG/ML Serum Alcohol < 10 <10 MG/DL My Orders Orders - DONNAFER TREVIZO Ua Culture If Indicated (09/16/17:) Cbc With Automated Diff (09/16/17:) Comprehensive Metabolic Panel (09/16/17:) Alcohol (09/16/17:) Drug Screen Stat (Urine) (09/16/17) Acetaminophen (09/16/17) Salicylate (09/16/17) Ekg Tracing (09/16/17:) Saline Lock/Iv-Start (09/16/17:) Saline Lock/Iv-Start (09/16/17:) Ns Iv 1000 Ml (Sodium Chloride 0.9%) (09/16/17 11:) Manual Differential (09/16/17 11:45) Potassium Chloride (Tablet) (Klor Con Ta (09/16/17 12:18) General/Regular (09/16/17 Lunch) Vital Signs/I&O 09/16/17 09/16/17 12:03 13:57 Temp 98.4 98.4 Pulse 100 103 Resp 18 18 B/P (MAP) 109/85 (93) 162/76 (93) Pulse Ox 98 O2 Delivery Simple Mask Room Air Progress Note : Time: 11:15 Progress Note Initial evaluation completed, spoke with the patient's daughter by phone to obtain a medical history. Will obtain labs, urine, urine drug screen and EKG. She's had no previous visits to this hospital. Normal saline 1 L IV. 1200 labs all essentially normal. Patient cooperative, answering questions appropriately and drinking water. 1330 spoke with the patient's daughter in [place] by phone, the patient has been compliant with all requests, communicating appropriately and following all commands. She is having auditory hallucinations, but as the daughter reports this is normal for her to have at all times. She has had no aggressive or combative behavior. Discussed with the patient could be discharged to home, with recommended follow-up at her mental health care provider's office. She has demonstrated no evidence to have suicidal or homicidal thoughts. The patient daughter reports the transportation will be an issue to get her home, we have offered to provide a taxi who can drive her to her granddaughter's home. They have agreed with this discharge plan. 1340 Spoke with Sandra Plummer from [facility], reviewed assessment and care provided to this point. She had an appt on September 02 and did not keep that appt. 1345 granddaughter notified by phone that the patient is being transported home per taxi. She will watch for her arrival. Initial ECG Impression Date: September 16, 2017 Initial ECG Impression Time: 11:54 Initial ECG Rate: 95 Initial ECG Rhythm: Normal Sinus Initial ECG Intervals: Normal Initial ECG Impression: Normal Initial ECG Comparisson: No Previous ECG Available Comment Reviewed with Dr. Swain concurred with interpretation. 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 Decision time for Depature: 13:30 Patient Instructions: Schizoaffective Disorder (DC) Add. Discharge Instructions: Continue home medication as previously prescribed. Continue to use distraction when patient is having auditory hallucinations. Encourage eating and drinking per her normal diet. Follow up with Sandra Edge in the next few days for mental health care. Return to the emergency department for any emergent health care needs. All discharge instructions reviewed with patient and/or family. Voiced understanding. Copy Copies To 1: STEFANO PEREZ AMY ARNP September 16, 2017 11:36
[2017-09-16] MEDS ORDERED: ATOR10TA66 PO (11:37)
[2017-09-16] MEDS ORDERED: ARIP5TAB20 PO (11:37)
[2017-09-16 11:44] LABS: BILIRUBIN,URINE NEGATIVE (NEGATIVE); CLARITY,URINE CLEAR; COLOR,URINE YELLOW; GLUCOSE, URINE (UA) NEGATIVE (NEGATIVE); KETONES,URINE NEGATIVE (NEGATIVE); LEUKOCYTE ESTERASE ,URINE NEGATIVE (NEGATIVE); NITRITE,URINE NEGATIVE (NEGATIVE); PH,URINE 6.5 (5-9); PROTEIN,URINE NEGATIVE (NEGATIVE); UROBILINOGEN,URINE NORMAL (NORMAL)
[2017-09-16] MEDS ORDERED: SUCR1TAB PO (11:48)
[2017-09-16] MEDS ORDERED: PANT40TA3 PO (11:48)
[2017-09-16] MEDS ORDERED: HYDR-700 PO (11:48)
[2017-09-16 11:51] LABS: BACTERIA,URINE NEGATIVE /HPF; SQUAMOUS EPITHELIAL CELL,UR 0-2 /HPF; WBC,URINE RARE /HPF
[2017-09-16 11:53] LABS: BASOPHILS # (AUTO) 0.1 10^3/uL (0.0-0.1); BASOPHILS % (AUTO) 0 % (0-10); EOSINOPHILS # (AUTO) 0.7 10^3/uL (0.0-0.3); EOSINOPHILS % (AUTO) 5 % (0-10); HEMATOCRIT 36 % (35-52); HEMOGLOBIN 11.9 G/DL (11.5-16.0); LYMPHOCYTES # (AUTO) 1.5 X 10^3 (1.0-4.0); LYMPHOCYTES % (AUTO) 11 % (12-44); MEAN CORPUSCULAR HEMOGLOBIN 25 PG (25-34); MEAN CORPUSCULAR HGB CONC 33 G/DL (32-36); MEAN CORPUSCULAR VOLUME 77 FL (80-99); MEAN PLATELET VOLUME 8.9 FL (7.4-10.4); MONOCYTES # (AUTO) 0.8 X 10^3 (0.0-1.0); MONOCYTES % (AUTO) 6 % (0-12); NEUTROPHILS # (AUTO) 11.5 X 10^3 (1.8-7.8); NEUTROPHILS % (AUTO) 79 % (42-75); PLATELET COUNT 428 10^3/uL (130-400); RED BLOOD COUNT 4.75 10^6/uL (4.35-5.85); RED CELL DISTRIBUTION WIDTH 14.4 % (10.0-14.5); WHITE BLOOD COUNT 14.6 10^3/uL (4.3-11.0)
[2017-09-16 11:58] LABS: AMPHETAMINE SCREEN, URINE NEGATIVE (NEGATIVE); BARBITURATE SCREEN URINE NEGATIVE (NEGATIVE); BENZODIAZEPINES SCREEN URINE NEGATIVE (NEGATIVE); CANNABINOID SCREEN, URINE NEGATIVE (NEGATIVE); COCAINE SCREEN URINE NEGATIVE (NEGATIVE); METHADONE STAT NEGATIVE (NEGATIVE); METHAMPHETAMINE SCREEN URINE S NEGATIVE (NEGATIVE); OPIATE SCREEN URINE NEGATIVE (NEGATIVE); OXYCODONE STAT NEGATIVE (NEGATIVE); PROPOXYPHENE STAT NEGATIVE (NEGATIVE); TRICYCLIC ANTIDEPRESSANTS SCRE NEGATIVE (NEGATIVE)
[2017-09-16 12:10] LABS: BAND NEUTROPHILS 3 %; BASOPHILS % (MANUAL) 1 %; EOSINOPHILS % (MANUAL) 5 %; LYMPHOCYTES % (MANUAL) 12 %; MONOCYTES % (MANUAL) 4 %; NEUTROPHILS % (MANUAL) 75 %; RBC MORPH NORMAL
[2017-09-16 12:16] LABS: ALANINE AMINOTRANSFERASE 24 U/L (0-55); ALBUMIN 4.2 GM/DL (3.2-4.5); ALKALINE PHOSPHATASE 79 U/L (40-136); BILIRUBIN,TOTAL 0.6 MG/DL (0.1-1.0); BUN/CREATININE RATIO 31; CALCIUM 9.7 MG/DL (8.5-10.1); CARBON DIOXIDE 23 MMOL/L (21-32); CHLORIDE 100 MMOL/L (98-107); CREATININE SERUM 0.93 MG/DL (0.60-1.30); GFR ESTIMATED > 60; GLUCOSE 105 MG/DL (70-105); POTASSIUM 3.3 MMOL/L (3.6-5.0); SALICYLATE < 5.0 MG/DL (5.0-20.0); SODIUM 134 MMOL/L (135-145); TOTAL PROTEIN 7.2 GM/DL (6.4-8.2)
[2017-09-16] MEDS ORDERED: KCL 10 MEQ TAB (MICRO K) PO STA (12:18)
[2017-09-16 12:19] LABS: ACETAMINOPHEN < 10 UG/ML (10-30)
[2017-09-16 13:57] VITALS: BP 162/76
== END 2017-09-16 13:58 | disposition home or self-care (01) ==
LOC: ER 11:18
DX: F20.9 Schizophrenia, unspecified (principal); F03.90 Unspecified dementia, unspecified severity, without behavioral disturbance, psychotic disturbance, mood disturbance, and anxiety; F17.200 Nicotine dependence, unspecified, uncomplicated; Z90.710 Acquired absence of both cervix and uterus
CPT/HCPCS: 36415; 80053; 80306; 80320; 80329; 81000; 85007; 85027; 93005; 96360